=== PATIENT | female | born 1930 | race Caucasian/White ===

== ENCOUNTER → 2017-02-18 | Outpatient (CLI) | payer OTHER ==
[~2017-02-18] MED LIST: 8 HOUR PAIN RE650 MG PO; ALBU3IS INH; ALBU90I INH; ALLO100 PO; AZIT250; AZIT250 PO; AZIT500 PO; Acetaminophen-1 EAC1 PO; BENADRYL25 MG PO; BENZ100A PO; BISA10S PR; CALCIUM 600 +1 EAC4 PO; CEFD300 PO; CENTRUM SILVER1 EAC2 PO; CHOL10002 PO; CIPR500 PO; CLARITIN10 MG PO; CODEINE-GUAIFE120 ML PO; CYAN100 PO; Cardiovid Plus1 EACH PO; Cipro250 MG PO; Cipro500 MG PO; Col-Rite100 MG PO; Constulose10 GM/15 M PO; Coq-10100 MG PO; DELTASONE20 MG PO; DICLOFENAC 1% GEL TOP; DIPH50 PO; DOC250 PO; DOCCAL240 PO; DOCU100 PO; DOXY100 PO; FISH1000 PO; FURO20 PO; Ferus150 MG; GABA100 PO; HYDR1TAB94 PO; HYDURE500 PO; IPRAIS INH; IPRAIS NEB; K-Dur20 MEQ PO; Kristalose20 GM PO; LEVFLO500 PO; LEVO750 PO; LEVSOD50; LINZESS145 MCG PO; LINZESS290 MCG PO; LOSHYD; MAGOXI400 PO; MELATONIN2.5 MG PO; MONT10T PO; Magnesium500 M1 PO; NAC600 MG PO; ONDA4ODT MM; ONDA4ODT SL; ONDA8 PO; OXYB5 PO; PANCREATIN 8X1 GM PO; PHOSPHATIDYL S100 GM PO; POTA8 PO; POTASSIUM PO; POTCHL10ER PO; POTCHL20ER PO; PYRI100 PO; Potassium Chlo10 ME1; SENN187 PO; SERT50 PO; Singulair10 MG PO; Sprycel100 MG PO; Sprycel20 MG PO; TEMA15 PO; TOCO1000 PO; UBID100 PO; VITAMIN D31 ML; VITAMIN D32400 UNIT/ PO; WARF1 PO; WARF5 PO; WARF6; WARF6 PO; WARF7.5; WARF7.5 PO; Zithromax250 MG PO; Zofran Odt4 MG PO; Zofran4 MG PO; Zofran8 MG PO; [UNRECOGNIZED DRUG - OTHER]; [UNRECOGNIZED DRUG - OTHER] PO
== END ==
LOC: LAB SHORT 15:52 → OLS 15:52 → LAB SHORT 02-19 15:52
DX: R19.7 Diarrhea, unspecified (principal)
CPT/HCPCS: 87493

== ENCOUNTER → 2017-02-21 | Outpatient (CLI) | payer OTHER | END | disposition home or self-care (01) | LOC: LAB SHORT 17:08 → OLS 17:08 | DX: J18.9 Pneumonia, unspecified organism (principal) | CPT/HCPCS: 87070; 87205 ==

== ENCOUNTER → 2017-02-21 | Outpatient (CLI) | payer OTHER ==
[2017-02-21 18:40] LABS: Influenza A Negative (NEGATIVE); Influenza B Negative (NEGATIVE)
== END | disposition home or self-care (01) ==
LOC: LAB 17:25 → LAB SHORT 17:25
PROVIDERS: Internal Medicine
DX: J18.9 Pneumonia, unspecified organism (principal); R50.9 Fever, unspecified; R05 Cough
CPT/HCPCS: 87804

== ENCOUNTER 2017-02-22 14:24 | Emergency (ER) | payer OTHER ==
[~2017-02-22] VITALS: Ht 175.3 cm; Wt 70.3 kg
[~2017-02-22 14:24] MED LIST changes: -AZIT250; -AZIT500 PO; -Acetaminophen-1 EAC1 PO; -CEFD300 PO; -CIPR500 PO; -Cipro250 MG PO; -Constulose10 GM/15 M PO; -FURO20 PO; -Ferus150 MG; -LEVFLO500 PO; -LINZESS145 MCG PO; -LINZESS290 MCG PO; -ONDA4ODT SL; -ONDA8 PO; -POTA8 PO; -SERT50 PO; -Sprycel20 MG PO; -TEMA15 PO; -Zithromax250 MG PO; -Zofran Odt4 MG PO; -Zofran4 MG PO; -Zofran8 MG PO
[2017-02-22 15:06] LABS: BASOPHILS ABSOLUTE AUTO 0.01 K/mm3 (0.00-0.23); BASOPHILS PERCENT AUTO 0 % (0-2); EOSINOPHILS ABSOLUTE AUTO 0.01 K/mm3 (0.00-0.68); EOSINOPHILS PERCENT AUTO 0 % (0-6); Hematocrit 31.1 % (33.0-51.0); Hemoglobin 10.1 g/dL (11.5-16.0); IMMATURE GRAN ABSOLUTE AUTO 0.01 K/mm3 (0.00-0.10); IMMATURE GRAN PERCENT AUTO 0 % (0-1); LYMPHOCYTES ABSOLUTE AUTO 3.41 K/mm3 (0.84-5.20); LYMPHOCYTES PERCENT AUTO 53 % (21-46); MONOCYTES ABSOLUTE AUTO 0.51 K/mm3 (0.16-1.47); MONOCYTES PERCENT AUTO 8 % (4-13); Mean Corpuscular HGB 30.1 pg (26.0-34.0); Mean Corpuscular HGB Conc 32.5 g/dL (31.5-36.5); Mean Corpuscular Volume 93 fL (80-100); Mean Platelet Volume 9.4 fL (9.1-12.4); NEUTROPHILS ABSOLUTE AUTO 2.48 K/mm3 (1.96-9.15); NEUTROPHILS PERCENT AUTO 39 % (41-73); Platelet Count 119 K/mm3 (150-400); RDW Coefficient Variation 17.2 % (11.7-14.2); RDW Standard Deviation 58.4 fL (35.1-46.3); Red Blood Cell Count 3.36 M/mm3 (3.80-5.20); White Blood Cell Count 6.43 K/mm3 (4.00-11.30)
[2017-02-22] MEDS ORDERED: DIPH50 PO (15:20)
[2017-02-22] MEDS ORDERED: LINZESS145 MCG PO (15:21)
[2017-02-22] MEDS ORDERED: Ferus150 MG ×2 (15:22→15:25)
[2017-02-22 15:23] LABS: Alanine Aminotransfer (ALT/SGP 32 U/L (12-78); Albumin, Blood 2.6 g/dL (3.4-5.0); Albumin/Globulin Ratio 0.6 (0.8-1.8); Alk Phos 64 U/L (50-136); Anion Gap 5 mmol/L (6-16); Aspartate Aminotrans (AST/SGOT 26 U/L (12-37); Bilirubin, Total 0.2 mg/dL (0.1-1.0); Blood Urea Nitrogen 17 mg/dL (8-24); Bun/Creatinine Ratio 28.1 (12.0-20.0); CO2, Blood 29 mmol/L (21-32); Calcium, Blood 8.2 mg/dL (8.5-10.1); Chloride, Blood 105 mmol/L (98-108); Creatinine, Blood 0.61 mg/dL (0.40-1.00); Globulin, Blood 4.1 g/dL (2.2-4.0); Glomerular Filtration Rate >60 (60-); Glucose, Blood 93 mg/dL (70-99); Potassium, Blood 3.6 mmol/L (3.5-5.5); Sodium, Blood 139 mmol/L (136-145); Total Protein, Blood 6.7 g/dL (6.4-8.2)
[2017-02-22] MEDS ORDERED: CEFD300 PO (15:23)
[2017-02-22] MEDS ORDERED: AZIT500 PO (15:23)
[2017-06-13] MEDS ORDERED: Zithromax250 MG PO (13:22)
[2017-06-13] MEDS ORDERED: TEMA15 PO (13:24)
[2017-06-13] MEDS ORDERED: POTA8 PO (13:24)
[2017-06-13] MEDS ORDERED: Acetaminophen-1 EAC1 PO (13:24)
[2017-06-13] MEDS ORDERED: SERT50 PO (13:24)
[2017-06-13] MEDS ORDERED: LINZESS290 MCG PO (13:24)
[2017-06-13] MEDS ORDERED: ONDA8 PO (13:24)
[2017-06-13] MEDS ORDERED: Constulose10 GM/15 M PO (13:24)
[2017-06-13] MEDS ORDERED: FURO20 PO (13:25)
[2017-06-23] MEDS ORDERED: LEVFLO500 PO (00:27)
[2017-06-23] MEDS ORDERED: Zofran Odt4 MG PO (00:27)
[2017-06-26] MEDS ORDERED: Zithromax250 MG PO (07:21)
[2017-10-17] MEDS ORDERED: Cipro250 MG PO (13:34)
== END 2017-02-22 17:44 | disposition home or self-care (01) ==
LOC: ER 14:24
PROVIDERS: Psychiatry & Neurology Psychiatry
DX: M26.621 Arthralgia of right temporomandibular joint (principal); J90 Pleural effusion, not elsewhere classified; Z88.1 Allergy status to other antibiotic agents; Z88.5 Allergy status to narcotic agent; Z88.8 Allergy status to other drugs, medicaments and biological substances; Z79.899 Other long term (current) drug therapy; I48.91 Unspecified atrial fibrillation; Z90.89 Acquired absence of other organs; Z90.710 Acquired absence of both cervix and uterus; Z90.49 Acquired absence of other specified parts of digestive tract
CPT/HCPCS: 36415; 70491; 80053; 85025; 96360; 96361; 99284; J7030; Q9967

== ENCOUNTER 2017-03-10 11:29 | Day surgery (SDC) | payer OTHER ==
[~2017-03-10 11:29] MED LIST changes: +AZIT500 PO; +CEFD300 PO; +Ferus150 MG; +LINZESS145 MCG PO
[2017-03-10 12:12] LABS: International Normalized Ratio 1.1; Prothrombin Time Results 11.5 Sec (9.7-11.5)
[2017-06-13] MEDS ORDERED: Zithromax250 MG PO (13:22)
[2017-06-13] MEDS ORDERED: TEMA15 PO (13:24)
[2017-06-13] MEDS ORDERED: ONDA8 PO (13:24)
[2017-06-13] MEDS ORDERED: POTA8 PO (13:24)
[2017-06-13] MEDS ORDERED: SERT50 PO (13:24)
[2017-06-13] MEDS ORDERED: LINZESS290 MCG PO (13:24)
[2017-06-13] MEDS ORDERED: Acetaminophen-1 EAC1 PO (13:24)
[2017-06-13] MEDS ORDERED: Constulose10 GM/15 M PO (13:24)
[2017-06-13] MEDS ORDERED: FURO20 PO (13:25)
[2017-06-23] MEDS ORDERED: LEVFLO500 PO (00:27)
[2017-06-23] MEDS ORDERED: Zofran Odt4 MG PO (00:27)
[2017-06-26] MEDS ORDERED: Zithromax250 MG PO (07:21)
[2017-10-17] MEDS ORDERED: Cipro250 MG PO (13:34)
== END 2017-03-10 22:51 | disposition home or self-care (01) ==
LOC: LAB 11:29 → US 11:29
PROVIDERS: Internal Medicine
PROC: 0W993ZX Drainage of Right Pleural Cavity, Percutaneous Approach, Diagnostic (ICD-10-PCS; principal; 2017-03-10)
DX: J90 Pleural effusion, not elsewhere classified (principal)
CPT/HCPCS: 32555; 36415; 71045; 85610; 85730; 88108; 88305

== ENCOUNTER → 2017-03-21 | Outpatient (CLI) | payer OTHER ==
[~2017-03-21] MED LIST changes: +AZIT250; +Acetaminophen-1 EAC1 PO; +CIPR500 PO; +Cipro250 MG PO; +Constulose10 GM/15 M PO; +FURO20 PO; +LEVFLO500 PO; +LINZESS290 MCG PO; +ONDA4ODT SL; +ONDA8 PO; +POTA8 PO; +SERT50 PO; +Sprycel20 MG PO; +TEMA15 PO; +Zithromax250 MG PO; +Zofran Odt4 MG PO; +Zofran4 MG PO; +Zofran8 MG PO
== END ==
LOC: LAB EV 18:19 → LAB SHORT 18:19
DX: N75.0 Cyst of Bartholin's gland (principal)
CPT/HCPCS: 87070; 87075; 87205

== ENCOUNTER 2017-03-26 18:18 | Emergency (ER) | payer OTHER ==
[~2017-03-26] VITALS: Ht 175.3 cm; Wt 70.3 kg
[~2017-03-26 18:18] MED LIST changes: -AZIT250; -Acetaminophen-1 EAC1 PO; -CIPR500 PO; -Cipro250 MG PO; -Constulose10 GM/15 M PO; -FURO20 PO; -LEVFLO500 PO; -LINZESS290 MCG PO; -ONDA4ODT SL; -ONDA8 PO; -POTA8 PO; -SERT50 PO; -Sprycel20 MG PO; -TEMA15 PO; -Zithromax250 MG PO; -Zofran Odt4 MG PO; -Zofran4 MG PO; -Zofran8 MG PO
[2017-03-26 19:15] LABS: BASOPHILS ABSOLUTE AUTO 0.01 K/mm3 (0.00-0.23); BASOPHILS PERCENT AUTO 0 % (0-2); EOSINOPHILS PERCENT AUTO 0 % (0-6); Hematocrit 36.5 % (33.0-51.0); Hemoglobin 11.6 g/dL (11.5-16.0); IMMATURE GRAN ABSOLUTE AUTO 0.01 K/mm3 (0.00-0.10); IMMATURE GRAN PERCENT AUTO 0 % (0-1); LYMPHOCYTES ABSOLUTE AUTO 1.56 K/mm3 (0.84-5.20); LYMPHOCYTES PERCENT AUTO 32 % (21-46); MONOCYTES ABSOLUTE AUTO 0.28 K/mm3 (0.16-1.47); MONOCYTES PERCENT AUTO 6 % (4-13); Mean Corpuscular HGB 29.5 pg (26.0-34.0); Mean Corpuscular HGB Conc 31.8 g/dL (31.5-36.5); Mean Corpuscular Volume 93 fL (80-100); Mean Platelet Volume 9.3 fL (9.1-12.4); NEUTROPHILS ABSOLUTE AUTO 2.98 K/mm3 (1.96-9.15); NEUTROPHILS PERCENT AUTO 62 % (41-73); Platelet Count 163 K/mm3 (150-400); RDW Coefficient Variation 15.5 % (11.7-14.2); RDW Standard Deviation 53.1 fL (35.1-46.3); Red Blood Cell Count 3.93 M/mm3 (3.80-5.20); White Blood Cell Count 4.84 K/mm3 (4.00-11.30)
[2017-03-26 19:34] LABS: Alanine Aminotransfer (ALT/SGP 30 U/L (12-78); Albumin/Globulin Ratio 0.7 (0.8-1.8); Alk Phos 95 U/L (50-136); Anion Gap 6 mmol/L (6-16); Aspartate Aminotrans (AST/SGOT 35 U/L (12-37); Bilirubin, Total 0.4 mg/dL (0.1-1.0); Blood Urea Nitrogen 17 mg/dL (8-24); Bun/Creatinine Ratio 23.5 (12.0-20.0); CO2, Blood 30 mmol/L (21-32); Calcium, Blood 9.1 mg/dL (8.5-10.1); Chloride, Blood 102 mmol/L (98-108); Creatinine, Blood 0.72 mg/dL (0.40-1.00); Globulin, Blood 4.6 g/dL (2.2-4.0); Glomerular Filtration Rate >60 (60-); Glucose, Blood 118 mg/dL (70-99); Potassium, Blood 3.5 mmol/L (3.5-5.5); Sodium, Blood 138 mmol/L (136-145); Total Protein, Blood 7.6 g/dL (6.4-8.2)
[2017-03-26] MEDS ORDERED: POTCHL20ER PO (20:41)
[2017-03-26] MEDS ORDERED: Sprycel20 MG PO (20:41)
[2017-03-26] MEDS ORDERED: Zofran8 MG PO (22:58)
[2017-03-27] MEDS ORDERED: ONDA4ODT SL (09:35)
[2017-03-27] MEDS ORDERED: CIPR500 PO (14:12)
[2017-06-13] MEDS ORDERED: Zithromax250 MG PO (13:22)
[2017-06-13] MEDS ORDERED: LINZESS290 MCG PO (13:24)
[2017-06-13] MEDS ORDERED: SERT50 PO (13:24)
[2017-06-13] MEDS ORDERED: POTA8 PO (13:24)
[2017-06-13] MEDS ORDERED: Acetaminophen-1 EAC1 PO (13:24)
[2017-06-13] MEDS ORDERED: TEMA15 PO (13:24)
[2017-06-13] MEDS ORDERED: Constulose10 GM/15 M PO (13:24)
[2017-06-13] MEDS ORDERED: ONDA8 PO (13:24)
[2017-06-13] MEDS ORDERED: FURO20 PO (13:25)
[2017-06-23] MEDS ORDERED: LEVFLO500 PO (00:27)
[2017-06-23] MEDS ORDERED: Zofran Odt4 MG PO (00:27)
[2017-06-26] MEDS ORDERED: Zithromax250 MG PO (07:21)
[2017-10-17] MEDS ORDERED: Cipro250 MG PO (13:34)
== END 2017-03-26 23:18 | disposition home or self-care (01) ==
LOC: ER 18:18
PROVIDERS: Emergency Medicine
DX: R11.2 Nausea with vomiting, unspecified (principal); Z88.8 Allergy status to other drugs, medicaments and biological substances; Z88.5 Allergy status to narcotic agent; Z88.1 Allergy status to other antibiotic agents; Z79.899 Other long term (current) drug therapy; Z79.2 Long term (current) use of antibiotics
CPT/HCPCS: 36415; 80053; 83690; 85025; 93005; 93010; 96361; 96374; 96376; 99285; J2405; J7030

== ENCOUNTER 2017-03-26 23:36 | Observation (INO) | payer OTHER ==
[~2017-03-26] VITALS: Ht 175.3 cm; Wt 68.6 kg
[~2017-03-26 23:36] MED LIST changes: +Sprycel20 MG PO; +Zofran8 MG PO
[2017-03-27 01:45] LABS: Source, Urine Catheter
[2017-03-27 01:48] LABS: Bilirubin, Urine Neg (Neg); Blood, Urine Neg (Neg); Glucose Qualitative, Urine Neg (Neg); Ketones, Urine Neg (Neg); Leukocyte Esterase, Urine 1+ (Neg); Nitrite, Urine Neg (Neg); Protein, Urine 2+ (Neg); Urobilinogen, Urine 1+ (Normal)
[2017-03-27 01:52] LABS: Appearance, Urine Clear (Clear); Color, Urine Yellow (P-Yellow)
[2017-03-27 01:56] LABS: Bacteria Few /hpf; Red Blood Cells, Urine Not Seen /hpf (0-2); Squamous Epithelial Cells Few /hpf (Few)
[2017-03-27] MEDS ORDERED: ONDA4ODT SL (09:35)
[2017-03-27] MEDS ORDERED: CIPR500 PO (14:12)
[2017-06-13] MEDS ORDERED: Zithromax250 MG PO (13:22)
[2017-06-13] MEDS ORDERED: TEMA15 PO (13:24)
[2017-06-13] MEDS ORDERED: LINZESS290 MCG PO (13:24)
[2017-06-13] MEDS ORDERED: SERT50 PO (13:24)
[2017-06-13] MEDS ORDERED: Acetaminophen-1 EAC1 PO (13:24)
[2017-06-13] MEDS ORDERED: ONDA8 PO (13:24)
[2017-06-13] MEDS ORDERED: POTA8 PO (13:24)
[2017-06-13] MEDS ORDERED: Constulose10 GM/15 M PO (13:24)
[2017-06-13] MEDS ORDERED: FURO20 PO (13:25)
[2017-06-23] MEDS ORDERED: Zofran Odt4 MG PO (00:27)
[2017-06-23] MEDS ORDERED: LEVFLO500 PO (00:27)
[2017-06-26] MEDS ORDERED: Zithromax250 MG PO (07:21)
[2017-10-17] MEDS ORDERED: Cipro250 MG PO (13:34)
== END 2017-03-27 16:03 | disposition home or self-care (01) ==
LOC: ER 23:36 → MEDS 23:37 → ENPENDDIS 03-27 09:00 → MEDS 03-27 16:03
PROVIDERS: Emergency Medicine
DX: R11.2 Nausea with vomiting, unspecified (principal); N39.0 Urinary tract infection, site not specified; I48.91 Unspecified atrial fibrillation; Z90.710 Acquired absence of both cervix and uterus; Z90.49 Acquired absence of other specified parts of digestive tract; Z90.89 Acquired absence of other organs; Z85.6 Personal history of leukemia; Z88.1 Allergy status to other antibiotic agents; Z88.5 Allergy status to narcotic agent; Z88.8 Allergy status to other drugs, medicaments and biological substances; Z79.899 Other long term (current) drug therapy; Z98.42 Cataract extraction status, left eye; Z96.1 Presence of intraocular lens; Z98.890 Other specified postprocedural states
CPT/HCPCS: 36415; 74176; 81001; 84484; 87086; 96361; 96374; 96375; 96376; 99285; G0378; J2405; J2550; J7030; P9612

== ENCOUNTER 2017-05-22 14:04 | Day surgery (SDC) | payer OTHER ==
[~2017-05-22 14:04] MED LIST changes: +CIPR500 PO; +ONDA4ODT SL
[2017-05-22 15:51] LABS: Automated BF WBC Count 1.217 K/mm3 (0-999); Body Fluid WBC Count 1217 /mm3 (0-999)
[2017-05-22 16:10] LABS: Performing Lab SYMBIODX; Test Name FLOW
[2017-05-22 16:24] LABS: RBC Count, Body Fluid 520 /mm3 (0-0)
[2017-05-22 16:48] LABS: Glucose, Body Fluid 117 mg/dL; Lactate Dehydrogenase, Body Fl 96 U/L; Protein, Body Fluid 3.9 g/dL
[2017-05-22 16:58] LABS: Color, Body Fluid L Yellow (None-Yellow)
[2017-05-22 16:59] LABS: Appearance, Body Fluid Hazy (Clear)
[2017-05-22 17:19] LABS: Total Cell Count, Body Fluid 100
== END 2017-05-22 22:44 | disposition home or self-care (01) ==
LOC: US 14:04
PROVIDERS: Internal Medicine Critical Care Medicine
PROC: 0W993ZZ Drainage of Right Pleural Cavity, Percutaneous Approach (ICD-10-PCS; principal; 2017-05-22)
DX: J90 Pleural effusion, not elsewhere classified (principal)
CPT/HCPCS: 32555; 71045; 82042; 82945; 83615; 84157; 89051

== ENCOUNTER 2017-06-19 11:39 | Emergency (ER) | payer OTHER ==
[~2017-06-19] VITALS: Ht 172.7 cm; Wt 151.0 kg
[~2017-06-19 11:39] MED LIST changes: +Acetaminophen-1 EAC1 PO; +Constulose10 GM/15 M PO; +FURO20 PO; +LINZESS290 MCG PO; +ONDA8 PO; +POTA8 PO; +SERT50 PO; +TEMA15 PO; +Zithromax250 MG PO
[2017-06-19 12:20] LABS: BASOPHILS ABSOLUTE AUTO 0.01 K/mm3 (0.00-0.23); BASOPHILS PERCENT AUTO 0 % (0-2); EOSINOPHILS ABSOLUTE AUTO 0.02 K/mm3 (0.00-0.68); EOSINOPHILS PERCENT AUTO 1 % (0-6); Hematocrit 36.8 % (33.0-51.0); Hemoglobin 11.5 g/dL (11.5-16.0); IMMATURE GRAN PERCENT AUTO 0 % (0-1); LYMPHOCYTES PERCENT AUTO 42 % (21-46); MONOCYTES ABSOLUTE AUTO 0.36 K/mm3 (0.16-1.47); MONOCYTES PERCENT AUTO 9 % (4-13); Mean Corpuscular HGB 28.5 pg (26.0-34.0); Mean Corpuscular HGB Conc 31.3 g/dL (31.5-36.5); Mean Corpuscular Volume 91 fL (80-100); Mean Platelet Volume 10.1 fL (9.1-12.4); NEUTROPHILS ABSOLUTE AUTO 1.85 K/mm3 (1.96-9.15); NEUTROPHILS PERCENT AUTO 48 % (41-73); Platelet Count 147 K/mm3 (150-400); RDW Coefficient Variation 17.2 % (11.7-14.2); RDW Standard Deviation 57.6 fL (35.1-46.3); Red Blood Cell Count 4.03 M/mm3 (3.80-5.20); White Blood Cell Count 3.84 K/mm3 (4.00-11.30)
[2017-06-19] MEDS ORDERED: AZIT250 (12:35)
[2017-06-19 12:37] LABS: Alanine Aminotransfer (ALT/SGP 25 U/L (12-78); Albumin, Blood 2.6 g/dL (3.4-5.0); Albumin/Globulin Ratio 0.6 (0.8-1.8); Alk Phos 67 U/L (50-136); Anion Gap 5 mmol/L (6-16); Aspartate Aminotrans (AST/SGOT 29 U/L (12-37); Bilirubin, Total 0.3 mg/dL (0.1-1.0); Blood Urea Nitrogen 20 mg/dL (8-24); Bun/Creatinine Ratio 27.8 (12.0-20.0); CO2, Blood 29 mmol/L (21-32); Calcium, Blood 8.5 mg/dL (8.5-10.1); Chloride, Blood 103 mmol/L (98-108); Creatinine, Blood 0.72 mg/dL (0.40-1.00); Globulin, Blood 4.4 g/dL (2.2-4.0); Glomerular Filtration Rate >60 (60-); Glucose, Blood 131 mg/dL (70-99); Sodium, Blood 137 mmol/L (136-145); Troponin I <0.015 ng/mL (0.000-0.040)
[2017-06-23] MEDS ORDERED: Zofran Odt4 MG PO (00:27)
[2017-06-23] MEDS ORDERED: LEVFLO500 PO (00:27)
== END 2017-06-19 15:23 | disposition home or self-care (01) ==
LOC: ER 11:39
PROVIDERS: Emergency Medicine
DX: R06.02 Shortness of breath (principal); Z88.1 Allergy status to other antibiotic agents; Z88.5 Allergy status to narcotic agent; Z88.8 Allergy status to other drugs, medicaments and biological substances; Z79.899 Other long term (current) drug therapy
CPT/HCPCS: 36415; 71046; 80053; 83880; 84484; 85025; 93005; 93010

== ENCOUNTER → 2017-06-28 | Outpatient (CLI) | payer OTHER ==
[~2017-06-28] MED LIST changes: +AZIT250; +LEVFLO500 PO; +Zofran Odt4 MG PO
[2017-06-28 14:07] LABS: BASOPHILS ABSOLUTE AUTO 0.01 K/mm3 (0.00-0.23); BASOPHILS PERCENT AUTO 0 % (0-2); EOSINOPHILS ABSOLUTE AUTO 0.01 K/mm3 (0.00-0.68); EOSINOPHILS PERCENT AUTO 0 % (0-6); Hematocrit 35.7 % (33.0-51.0); Hemoglobin 11.6 g/dL (11.5-16.0); IMMATURE GRAN ABSOLUTE AUTO 0.01 K/mm3 (0.00-0.10); IMMATURE GRAN PERCENT AUTO 0 % (0-1); LYMPHOCYTES ABSOLUTE AUTO 1.05 K/mm3 (0.84-5.20); LYMPHOCYTES PERCENT AUTO 35 % (21-46); MONOCYTES ABSOLUTE AUTO 0.39 K/mm3 (0.16-1.47); MONOCYTES PERCENT AUTO 13 % (4-13); Mean Corpuscular HGB 29.2 pg (26.0-34.0); Mean Corpuscular HGB Conc 32.5 g/dL (31.5-36.5); Mean Corpuscular Volume 90 fL (80-100); Mean Platelet Volume 9.3 fL (9.1-12.4); NEUTROPHILS ABSOLUTE AUTO 1.55 K/mm3 (1.96-9.15); NEUTROPHILS PERCENT AUTO 51 % (41-73); Platelet Count 141 K/mm3 (150-400); RDW Coefficient Variation 17.9 % (11.7-14.2); RDW Standard Deviation 58.9 fL (35.1-46.3); Red Blood Cell Count 3.97 M/mm3 (3.80-5.20); White Blood Cell Count 3.02 K/mm3 (4.00-11.30)
[2017-06-28 14:20] LABS: Albumin, Blood 2.7 g/dL (3.4-5.0); Albumin/Globulin Ratio 0.6 (0.8-1.8); Bilirubin, Total 0.3 mg/dL (0.1-1.0); Bun/Creatinine Ratio 20.7 (12.0-20.0); Calcium, Blood 8.7 mg/dL (8.5-10.1); Creatinine, Blood 0.92 mg/dL (0.40-1.00); Globulin, Blood 4.5 g/dL (2.2-4.0); Potassium, Blood 3.9 mmol/L (3.5-5.5); Total Protein, Blood 7.2 g/dL (6.4-8.2)
== END | disposition home or self-care (01) ==
LOC: LAB EV 14:01 → LAB SHORT 14:01
PROVIDERS: Physician Assistant
DX: R06.00 Dyspnea, unspecified (principal)
CPT/HCPCS: 80053; 83880; 85025

== ENCOUNTER → 2017-07-30 | Outpatient (CLI) | payer OTHER ==
[2017-07-30 13:37] LABS: Bilirubin, Urine Neg (Neg); Blood, Urine Neg (Neg); Glucose Qualitative, Urine Neg (Neg); Ketones, Urine Neg (Neg); Leukocyte Esterase, Urine Neg (Neg); Nitrite, Urine Neg (Neg); Protein, Urine Neg (Neg); Urobilinogen, Urine 1+ (Normal)
[2017-07-30 14:04] LABS: Appearance, Urine Clear (Clear); Color, Urine Yellow (P-Yellow)
== END | disposition home or self-care (01) ==
LOC: LAB HH 13:26
PROVIDERS: Internal Medicine
DX: N39.0 Urinary tract infection, site not specified (principal)
CPT/HCPCS: 81003

== ENCOUNTER 2017-11-13 17:41 | Emergency (ER) | payer OTHER ==
[~2017-11-13] VITALS: Ht 170.2 cm; Wt 64.9 kg
[~2017-11-13 17:41] MED LIST changes: +Cipro250 MG PO
[2017-11-13 18:18] LABS: BASOPHILS ABSOLUTE AUTO 0.01 K/mm3 (0.00-0.23); BASOPHILS PERCENT AUTO 0 % (0-2); EOSINOPHILS ABSOLUTE AUTO 0.01 K/mm3 (0.00-0.68); EOSINOPHILS PERCENT AUTO 0 % (0-6); Hematocrit 37.9 % (33.0-51.0); Hemoglobin 11.8 g/dL (11.5-16.0); IMMATURE GRAN PERCENT AUTO 0 % (0-1); LYMPHOCYTES ABSOLUTE AUTO 1.61 K/mm3 (0.84-5.20); LYMPHOCYTES PERCENT AUTO 38 % (21-46); MONOCYTES PERCENT AUTO 10 % (4-13); Mean Corpuscular HGB Conc 31.1 g/dL (31.5-36.5); Mean Corpuscular Volume 90 fL (80-100); Mean Platelet Volume 10.3 fL (9.1-12.4); NEUTROPHILS ABSOLUTE AUTO 2.17 K/mm3 (1.96-9.15); NEUTROPHILS PERCENT AUTO 52 % (41-73); Platelet Count 153 K/mm3 (150-400); RDW Coefficient Variation 16.9 % (11.7-14.2); RDW Standard Deviation 56.2 fL (35.1-46.3); Red Blood Cell Count 4.21 M/mm3 (3.80-5.20)
[2017-11-13 18:37] LABS: Alanine Aminotransfer (ALT/SGP 31 U/L (12-78); Albumin, Blood 2.8 g/dL (3.4-5.0); Albumin/Globulin Ratio 0.6 (0.8-1.8); Alk Phos 76 U/L (50-136); Anion Gap 7 mmol/L (6-16); Aspartate Aminotrans (AST/SGOT 28 U/L (12-37); Bilirubin, Total 0.3 mg/dL (0.1-1.0); Blood Urea Nitrogen 15 mg/dL (8-24); Bun/Creatinine Ratio 23.1 (12.0-20.0); CO2, Blood 29 mmol/L (21-32); Calcium, Blood 8.8 mg/dL (8.5-10.1); Chloride, Blood 100 mmol/L (98-108); Creatinine, Blood 0.65 mg/dL (0.40-1.00); Globulin, Blood 4.9 g/dL (2.2-4.0); Glomerular Filtration Rate >60 (60-); Glucose, Blood 107 mg/dL (70-99); Potassium, Blood 4.1 mmol/L (3.5-5.5); Sodium, Blood 136 mmol/L (136-145); Total Protein, Blood 7.7 g/dL (6.4-8.2)
[2017-11-13 23:53] LABS: Source, Urine Clean Catch
[2017-11-13 23:54] LABS: Bilirubin, Urine Neg (Neg); Blood, Urine 2+ (Neg); Glucose Qualitative, Urine Neg (Neg); Ketones, Urine 1+ (Neg); Leukocyte Esterase, Urine 3+ (Neg); Nitrite, Urine Neg (Neg); Protein, Urine 3+ (Neg); Urobilinogen, Urine 2+ (Normal)
[2017-11-14 00:02] LABS: Appearance, Urine Cloudy (Clear); Color, Urine Yellow (P-Yellow); White Blood Cells, Urine TNTC /hpf (0-5)
[2017-11-14 00:03] LABS: Amorphous Light (0-Heavy); Bacteria Many /hpf; Squamous Epithelial Cells Few /hpf (Few); Transitional Epithelial Cells Few /hpf (0-Rare)
[2017-11-14] MEDS ORDERED: Zofran4 MG PO (00:40)
== END 2017-11-14 00:58 | disposition home or self-care (01) ==
LOC: ER 17:41
PROVIDERS: Emergency Medicine
DX: A08.4 Viral intestinal infection, unspecified (principal); E86.0 Dehydration; I48.91 Unspecified atrial fibrillation; Z88.1 Allergy status to other antibiotic agents; Z88.5 Allergy status to narcotic agent; Z88.8 Allergy status to other drugs, medicaments and biological substances; Z79.899 Other long term (current) drug therapy
CPT/HCPCS: 36415; 80053; 81001; 83690; 84484; 85025; 87086; 93005; 93010; 96361; 96374; 99283-25; J2405; J7120

== ENCOUNTER → 2018-01-26 | Outpatient (CLI) | payer OTHER ==
[~2018-01-26] MED LIST changes: +Zofran4 MG PO
[2018-01-26 18:25] LABS: Percent Saturation 12.5 % (15.0-50.0)
== END | disposition home or self-care (01) ==
LOC: LAB SHORT 17:57 → LAB 17:57
PROVIDERS: Internal Medicine Hematology & Oncology
DX: D50.9 Iron deficiency anemia, unspecified (principal)
CPT/HCPCS: 82728; 83540; 83550

== ENCOUNTER 2019-06-13 19:52 | Observation (INO) | payer OTHER ==
[~2019-06-13] VITALS: Ht 170.2 cm; Wt 77.6 kg
[2019-06-13 20:45] LABS: BASOPHILS ABSOLUTE AUTO 0.16 K/mm3 (0.00-0.23); BASOPHILS PERCENT AUTO 2 % (0-2); EOSINOPHILS ABSOLUTE AUTO 0.01 K/mm3 (0.00-0.68); EOSINOPHILS PERCENT AUTO 0 % (0-6); Hematocrit 38.4 % (33.0-51.0); Hemoglobin 12.1 g/dL (11.5-16.0); IMMATURE GRAN ABSOLUTE AUTO 0.14 K/mm3 (0.00-0.10); IMMATURE GRAN PERCENT AUTO 1 % (0-1); LYMPHOCYTES ABSOLUTE AUTO 1.71 K/mm3 (0.84-5.20); LYMPHOCYTES PERCENT AUTO 17 % (21-46); MONOCYTES ABSOLUTE AUTO 0.85 K/mm3 (0.16-1.47); MONOCYTES PERCENT AUTO 9 % (4-13); Mean Corpuscular HGB 28.6 pg (26.0-34.0); Mean Corpuscular HGB Conc 31.5 g/dL (31.5-36.5); Mean Corpuscular Volume 91 fL (80-100); Mean Platelet Volume 9.3 fL (9.1-12.4); NEUTROPHILS ABSOLUTE AUTO 7.06 K/mm3 (1.96-9.15); NEUTROPHILS PERCENT AUTO 71 % (41-73); Platelet Count 410 K/mm3 (150-400); RDW Coefficient Variation 13.7 % (11.7-14.2); RDW Standard Deviation 46.1 fL (35.1-46.3); Red Blood Cell Count 4.23 M/mm3 (3.80-5.20); White Blood Cell Count 9.93 K/mm3 (4.00-11.30)
[2019-06-13 20:52] LABS: Source, Urine Catheter
[2019-06-13 20:56] LABS: Bilirubin, Urine Neg (Neg); Blood, Urine 2+ (Neg); Glucose Qualitative, Urine Neg (Neg); Ketones, Urine Neg (Neg); Leukocyte Esterase, Urine 3+ (Neg); Nitrite, Urine Pos (Neg); Protein, Urine 2+ (Neg); Specific Gravity, Urine 1.015 (1.003-1.022); Urobilinogen, Urine 2+ (Normal)
[2019-06-13 21:01] LABS: Appearance, Urine Hazy (Clear); Color, Urine Yellow (P-Yellow)
[2019-06-13 21:03] LABS: Red Blood Cells, Urine 0-2 /hpf (0-2); White Blood Cells, Urine TNTC /hpf (0-5)
[2019-06-13 21:05] LABS: Bacteria Many /hpf; Squamous Epithelial Cells Rare /hpf (Few)
[2019-06-13 21:06] LABS: Alanine Aminotransfer (ALT/SGP 9 U/L (12-78); Albumin, Blood 3.1 g/dL (3.4-5.0); Albumin/Globulin Ratio 0.6 (0.8-1.8); Alk Phos 84 U/L (50-136); Anion Gap 5 mmol/L (6-16); Aspartate Aminotrans (AST/SGOT 14 U/L (12-37); Bilirubin, Total 0.6 mg/dL (0.1-1.0); Blood Urea Nitrogen 14 mg/dL (8-24); Bun/Creatinine Ratio 21.4 (12.0-20.0); CO2, Blood 30 mmol/L (21-32); Calcium, Blood 9.1 mg/dL (8.5-10.1); Chloride, Blood 100 mmol/L (98-108); Creatinine, Blood 0.65 mg/dL (0.40-1.00); Globulin, Blood 4.9 g/dL (2.2-4.0); Glomerular Filtration Rate >60 (60-); Glucose, Blood 115 mg/dL (70-99); Magnesium, Blood 1.8 mg/dL (1.6-2.4); Phosphorus, Blood 2.2 mg/dL (2.5-4.9); Potassium, Blood 3.6 mmol/L (3.5-5.5); Sodium, Blood 135 mmol/L (136-145); Troponin I <0.015 ng/mL (0.000-0.040)
[2019-06-13] MEDS ORDERED: CENTRUM SILVER1 EAC2 PO (21:47)
--- NOTE | 2019-06-14 00:06 | NUR ---
PATIENT IS A NEW ADMIT FROM THE ED. THREE PERSON TRANSFER FROM [facility] TO BED. AXOX 3 AND BEDREST FROM [facility]. ON 4L O2 NC AND 5L O2 NC BASELINE. REPORTS BILATERAL HIP PAIN AND LEFT WRIST SWOLLEN. PATIENT NAUSEOUS ON TRANSFER FROM ED TO MEDICAL ROOM. NO IV ZOFRAN IN EMAR AT THIS TIME. WILL ORDER. PATIENT REPORTS PAIN IS TOLERABLE AT THIS TIME. RECEIVED IV DILAUDID IN ED. PATIENT ORIENTED TO ROOM AND CALL LIGHT SYSTEM. REPORTS NO TV AT THIS TIME AND LIGHTS REDUCED. CALL IGHT IN REACH. BED ALARM ACTIVATED.
--- NOTE | 2019-06-14 00:11 | NUR ---
HOSPITALIST ИРИНА ROCHA ORDERED IV ZOFRAN 4 MG Q6 PRN.
--- NOTE | 2019-06-14 00:44 | NUR ---
ORTHOPEDICS CONSULT CALLED IN.
--- NOTE | 2019-06-14 02:35 | NUR ---
BED ALARM EXIT. PATIENT GETTING UP TO USE BSC. ONE HVY ASSIST. BED ALARM RESET. CALL LIGHT IN REACH.
--- NOTE | 2019-06-14 03:43 | NUR ---
SHIFT SUMMARY PATIENT HAD NO ACUTE CHANGES OBSERVED. AXOX 3 AND ONE HVY ASSIST TO BSC. REPORTED TOLERATING BILATERAL HIP AND LEFT WRIST PAIN. ON 4L O2 NC AND 5L O2 NC. HX RHONDA. PIV REMAINS INTACT. ORTHOPEDIC CONSULT CALLED IN. VSS/AFBERILE. NAUSEOUS X ONE AND IV ZOFRAN 4 MG GIVEN PER EMAR AND RESOLVED. BED ALARM EXITS WITH ATTEMPTS TO USE BSC W/O CALLING. CALL LIGHT IN REACH. BED IN LOWEST POSITION. WILL CONTINUE TO MONITOR UNTIL DAY SHIFT NURSE ASSUMES CARE.
--- NOTE | 2019-06-14 08:30 | NUR ---
PT PLEASANT COOP A/O. STATES PAIN HIPS, SHOULDERS, L KNEE AND L WRIST. FROM RECENT FALL. MED PER EMAR. H/R REG, NO MURMER NOTED. NO TELE. LUNGS CLEAR, RESP EASY, UNLABORED. ON 4L O2. BT X4 , LAST BM YEST. VOIDS 1 ASST BSC. PENDING VISIT FROM DR ADLER. NO OTHER CONCERNS AT THIS TIME. BED IN LOW POSITION,C ALL LITE IN REACH, CALLS APPROP
--- NOTE | 2019-06-14 11:40 | NUR ---
PT C/O PAIN. NOT HELPED WITH NORCO, NOT HELPED MUCH WITH FENTANYL . CALLED DR GALLO. DR REYED TORADOL ORDERS PENDING
--- NOTE | 2019-06-14 12:43 | NUR ---
PT RESTING, EYES CLOSED. DID NOT AWAKEN.
--- NOTE | 2019-06-14 17:12 | NUR ---
PT PLEASANT TODAY. NOT SEEN ORTHO TODAY. CALLED [facility]. CLOSED, SPOKE TO ANS SVC. SHE STATE DID GET CONSULT AT 0040 THIS AM. SHOWS CONFIRM TO TEXT TO DR. WILL DOUBLE CHECK DR RECEIVED. DID TRY TORADOL IV THIS AFT. PT THINKS HELPING SOME. WILL CONTINUE TO MONITOR. NO NEW CONCERNS AT THIS TIME. BED IN LOW POSITION, CALL LITE IN REACH, CALLS APPROP. BED ALARM ON FOR SAFETY
--- NOTE | 2019-06-15 06:19 | NUR ---
SUMMARY: A/OX3 BUT SHE'S IMPULSIVE OOB FOR BSC USE AND DOESN'T ALWAYS CALL FOR ASSIST. BED ALARM ON FOR FALL RISK. SHE CONT'S TO BE PAINFUL IN HER HIPS, SHOULDERS AND WRIST R/T FALL AT HOME AND SCATTERED BRUISES OBSERVED. SURGICAL CX STILL PENDING. PT WAS MEDICATED W/TYLENOL AND TORADOL PRN FOR TOLERABLE RELIEF OF PAIN. TREMOR DEVELOPS WHEN PAIN IS WORSENING. SHE ALSO HAS SOME INTERMITTENT NAGGING NAUSEA, ZOFRAN RECIEVED FOR GOOD EFFECT. SHE WAS UP TO BSC T/O NOCTE W/SBA TO VOID, NO INCONTINENCE OBSERVED. PT REMAINS ON 4L O2 AND WEARS HOME O2 PRN, LS CLEAR T/O AND RESPS E/U. IV ABX RECIEVED THEN SL. NO ACUTE CHANGES, VSS/AFEBRILE. WCTM AND REPORT TO DAY RN.
--- NOTE | 2019-06-15 07:41 | NUR ---
I JUST RECEIVED A CALL FROM ORTHOPEDIC Clive HARRINGTON THAT HE AND WILL NOT CONSULT HERE. AFTER REVIEWING HER CHART THEY THINK ALL HER PAIN AND SWELLING IS D/T ARTHRITIS AND WILL SEE HER AN OUTPATIENT FOR MANAGEMENT OF THAT.
[2019-06-15] MEDS ORDERED: CEFU250T47 PO (12:05)
[2019-06-15] MEDS ORDERED: ACET325 PO (12:05)
--- NOTE | 2019-06-15 13:58 | NUR ---
SHE HAS BEEN UP TO THE CHAIR FOR MEALS. HER LW BOTHERS HER THE MOST. IS AWARE THAT THE ORTHOPEDIC DRZeke DOES NOT NEED TO SEE HER AN INPATIENT. SHE WORKED WITH PT AND LATER OT. TORADOL WAS GIVEN FOR ALL HER JOINT PAINS. IT HELPED. SHE DIDN'T USE HER LH ON THE WALKER THIS AM BUT DID THIS SFTERNOON.
--- NOTE | 2019-06-15 15:13 | NUR ---
TRYING TO NAP ON HER LEFT SIDE. MESS ATTENDANT CREW SAYS SHE WILL DISCHARGE THIS AFTERNOON. WAITING TO HEAR A PANTS MAKER TIME.
--- NOTE | 2019-06-15 17:15 | NUR ---
DISCHARGED TO [facility] BY W/Roberto POSADA NOW. SHE JUST HAD HEARTBURN A LITTLE WHILE AGO. I GAVE HER BAKING SODA IN WATER PER HER REQUEST. SHE STARTED TO FEEL BETTER. NO OTHER COMPLAINTS OTHER THAN HER CHRONIC BACK PAIN. SHE WILL REHAB THEN GO HOME. SHE NOTIFIED HER SISTER.
== END 2019-06-15 17:12 ==
LOC: ER 19:52 → MEDS 19:53
PROVIDERS: Emergency Medicine; ADMIT Family Medicine
DX: M16.0 Bilateral primary osteoarthritis of hip (principal); M25.562 Pain in left knee; N39.0 Urinary tract infection, site not specified; I48.0 Paroxysmal atrial fibrillation; Z79.01 Long term (current) use of anticoagulants; Z91.81 History of falling; Z88.0 Allergy status to penicillin; Z88.5 Allergy status to narcotic agent; Z88.8 Allergy status to other drugs, medicaments and biological substances
CPT/HCPCS: 36415; 71045; 73110; 73522; 73560-LT; 80053; 81001; 83735; 84100; 84484; 85025; 87077; 87086; 87186; 93005; 93010; 96365; 96366; 96372; 96374; 96375; 96376; 97112; 97162; 97166; 97530; 97535; 99285-25; A9270; A9270-GY; G0378; J0696; J1170; J1650; J1885; J2405; J3010

== ENCOUNTER 2019-09-22 12:42 | Inpatient (IN) | payer OTHER ==
[~2019-09-22] VITALS: Ht 170.2 cm; Wt 74.0 kg
[~2019-09-22 12:42] MED LIST changes: +ACET325 PO; +ASPI81CH PO; +CEFP200 PO; +CEFU250T47 PO; +Hydroxyurea500 MG PO; +MULTI VITAMIN1 EACH PO
[2019-09-22 13:44] LABS: Hematocrit 36.2 % (33.0-51.0); Hemoglobin 11.1 g/dL (11.5-16.0); Mean Corpuscular HGB 26.9 pg (26.0-34.0); Mean Corpuscular HGB Conc 30.7 g/dL (31.5-36.5); Mean Corpuscular Volume 88 fL (80-100); Mean Platelet Volume 9.1 fL (9.1-12.4); NRBC Auto 0.2 /100 WBC (0.0-0.2); RDW Coefficient Variation 17.2 % (11.7-14.2); Red Blood Cell Count 4.12 M/mm3 (3.80-5.20)
[2019-09-22 13:49] LABS: Alanine Aminotransfer (ALT/SGP 16 U/L (12-78); Albumin/Globulin Ratio 0.6 (0.8-1.8); Alk Phos 67 U/L (50-136); Anion Gap 7 mmol/L (6-16); Aspartate Aminotrans (AST/SGOT 41 U/L (12-37); Bilirubin, Total 0.4 mg/dL (0.1-1.0); Blood Urea Nitrogen 20 mg/dL (8-24); Bun/Creatinine Ratio 28.7 (12.0-20.0); CO2, Blood 22 mmol/L (21-32); Calcium, Blood 9.5 mg/dL (8.5-10.1); Chloride, Blood 104 mmol/L (98-108); Globulin, Blood 4.8 g/dL (2.2-4.0); Glomerular Filtration Rate >60 (60-); Glucose, Blood 115 mg/dL (70-99); Potassium, Blood 5.4 mmol/L (3.5-5.5); Sodium, Blood 133 mmol/L (136-145); Total Protein, Blood 7.8 g/dL (6.4-8.2)
[2019-09-22 13:52] LABS: Platelet Count 3402 K/mm3 (150-400); White Blood Cell Count 51.61 K/mm3 (4.00-11.30)
[2019-09-22 14:10] LABS: BAND PERCENT MAN 1 % (0-8); BASOPHILS ABSOLUTE MAN 1.54 K/mm3 (0.00-0.23); BASOPHILS PERCENT MAN 3 % (0-2); EOSINOPHILS ABSOLUTE MAN 2.58 K/mm3 (0.00-0.68); EOSINOPHILS PERCENT MAN 5 % (0-6); LYMPHOCYTES ABSOLUTE MAN 2.06 K/mm3 (0.84-5.20); LYMPHOCYTES PERCENT MAN 4 % (21-46); METAMYELOCYTE ABSOLUTE MAN 2.58 K/mm3 (0.00-0.00); METAMYELOCYTE PERCENT MAN 5 % (0-0); MONOCYTES ABSOLUTE MAN 0.51 K/mm3 (0.16-1.47); MONOCYTES PERCENT MAN 1 % (4-13); NEUTROPHILS ABSOLUTE MAN 37.67 K/mm3 (1.96-9.15); SEG NEUTROPHILS PERCENT MAN 72 % (41-73); TOTAL CELLS COUNTED 100
[2019-09-22 14:13] LABS: MYELOCYTE ABSOLUTE MAN 3.09 K/mm3 (0.00-0.00); MYELOCYTE PERCENT MAN 6 % (0-0); PROMYELOCYTE ABSOLUTE MAN 1.54 K/mm3 (0.00-0.00); PROMYELOCYTE PERCENT MAN 3 % (0-0)
[2019-09-22] MEDS ORDERED: ASPIR 8181 MG PO (15:41)
[2019-09-22] MEDS ORDERED: HYDURE500 PO (15:42)
--- NOTE | 2019-09-22 18:09 | NUR ---
SHIFT SUMMARY PT ADMITTED FROM THE ER THIS RUSTAM. SHE IS A/O X 4 AND DENIES PAIN. SHE DOES REPORT THAT SHE HAS BEEN INCREASINGLY WEAK LATELY AND DID FALL AT HOME RECENTLY. SHE REPORTS THAT SHE HAS ACHE/DISCOMFORT IN HER LEFT SIDE SINCE BEFORE TAMIA THAT THE DR IS AWARE OF. SHE WAS ORIENTED TO HER ROOM, NURSING STAFF AND HER CALL LIGHT. SHE SAYS THAT SHE THINKS SHE WAS SUPPOSED TO BE TAKING SOME MEDS AT HOME PRESCRIBED BY HER PCP BUT SHE HAS NOT BEEN TAKING THEM. DR FINLEY ORDERED A REGULAR DIET AND A TRAY WAS ORDERED FOR DINNER. TELE IS IN PLACE AND HI LO DRIVER REPORTS SINUS RHYTHM. PT IS ABLE TO MAKE HER NEEDS KNOWN AND HAS HER CALL LIGHT IN REACH.
--- NOTE | 2019-09-22 20:32 | NUR ---
ASSUMED CARE. ARAMIS IS AOX3, COOPERATIVE. PALE AND APPEARS FATIQUED. APPETITE FAIR. LUNG SOUNDS CLEAR, NO COUGH OR CONGESTION NOTED. HR SINUS PER TELEMETRY. ABDOMIN DISTENDED, STATES SHE FEELS VERY BLOATED, PASSING SMALL AMOUNT OF GAS. WAITING FOR BOWELS TO MOVE SHE SAID. OLD CHRONIC SORE ON THE INNER CALF OF LEFT LEG. DENIES N/T. NO PAIN NOTED. AWAITING PHARMACY TO SEND DOWN MEDS. CALL LIGHT IN REACH.
[2019-09-23 00:12] LABS: Source, Urine Clean Catch
[2019-09-23 00:16] LABS: Appearance, Urine Hazy (Clear); Bilirubin, Urine Neg (Neg); Blood, Urine 5+ (Neg); Color, Urine Yellow (P-Yellow); Glucose Qualitative, Urine Neg (Neg); Ketones, Urine Neg (Neg); Leukocyte Esterase, Urine 2+ (Neg); Nitrite, Urine Neg (Neg); Protein, Urine Neg (Neg); Urobilinogen, Urine NORM (Normal)
[2019-09-23 00:36] LABS: Amorphous Light (0-Heavy); Bacteria Many /hpf; Mucus Light (0-Heavy); Squamous Epithelial Cells Rare /hpf (Few)
[2019-09-23 05:11] LABS: Hematocrit 24.7 % (33.0-51.0); Hemoglobin 7.6 g/dL (11.5-16.0); Mean Corpuscular HGB 27.1 pg (26.0-34.0); Mean Corpuscular HGB Conc 30.8 g/dL (31.5-36.5); Mean Corpuscular Volume 88 fL (80-100); Mean Platelet Volume 9.2 fL (9.1-12.4); NRBC ABSOLUTE 0.08 K/mm3 (0.00-0.02); NRBC Auto 0.2 /100 WBC (0.0-0.2); RDW Coefficient Variation 17.2 % (11.7-14.2); RDW Standard Deviation 54.7 fL (35.1-46.3); White Blood Cell Count 48.56 K/mm3 (4.00-11.30)
[2019-09-23 05:15] LABS: Platelet Count 2289 K/mm3 (150-400)
[2019-09-23 05:24] LABS: International Normalized Ratio 1.13
[2019-09-23 05:50] LABS: BAND PERCENT MAN 3 % (0-8); BASOPHILS ABSOLUTE MAN 2.42 K/mm3 (0.00-0.23); BASOPHILS PERCENT MAN 5 % (0-2); EOSINOPHILS ABSOLUTE MAN 1.45 K/mm3 (0.00-0.68); EOSINOPHILS PERCENT MAN 3 % (0-6); LYMPHOCYTES ABSOLUTE MAN 4.85 K/mm3 (0.84-5.20); LYMPHOCYTES PERCENT MAN 10 % (21-46); METAMYELOCYTE ABSOLUTE MAN 1.45 K/mm3 (0.00-0.00); METAMYELOCYTE PERCENT MAN 3 % (0-0); MONOCYTES ABSOLUTE MAN 0.97 K/mm3 (0.16-1.47); MONOCYTES PERCENT MAN 2 % (4-13); MYELOCYTE ABSOLUTE MAN 1.94 K/mm3 (0.00-0.00); MYELOCYTE PERCENT MAN 4 % (0-0); NEUTROPHILS ABSOLUTE MAN 34.96 K/mm3 (1.96-9.15); PROMYELOCYTE ABSOLUTE MAN 0.48 K/mm3 (0.00-0.00); PROMYELOCYTE PERCENT MAN 1 % (0-0); SEG NEUTROPHILS PERCENT MAN 69 % (41-73); TOTAL CELLS COUNTED 100
[2019-09-23 05:52] LABS: Alanine Aminotransfer (ALT/SGP 14 U/L (12-78); Albumin, Blood 2.4 g/dL (3.4-5.0); Albumin/Globulin Ratio 0.7 (0.8-1.8); Alk Phos 52 U/L (50-136); Anion Gap 6 mmol/L (6-16); Aspartate Aminotrans (AST/SGOT 16 U/L (12-37); Bilirubin, Total 0.3 mg/dL (0.1-1.0); Blood Urea Nitrogen 29 mg/dL (8-24); Bun/Creatinine Ratio 33.6 (12.0-20.0); CO2, Blood 26 mmol/L (21-32); Calcium, Blood 8.3 mg/dL (8.5-10.1); Chloride, Blood 105 mmol/L (98-108); Creatinine, Blood 0.86 mg/dL (0.40-1.00); Globulin, Blood 3.6 g/dL (2.2-4.0); Glomerular Filtration Rate >60 (60-); Glucose, Blood 109 mg/dL (70-99); Potassium, Blood 4.2 mmol/L (3.5-5.5); Sodium, Blood 137 mmol/L (136-145)
--- NOTE | 2019-09-23 05:55 | NUR ---
SHIFT SUMMARY: ARAMIS HAD A GOOD NIGHT, SLEEPING MAJORITY OF THE SHIFT. SHE DID HAVE AN INCONTIENT BOWEL MOVEMENT, LARGE, SOFT. UA WAS COLLECTED AND SENT. SHE DID NOT COMPLAIN OF PAIN THIS SHIFT. IV FLUIDS WERE STARTED. SHE WAS ABLE TO GET TO BSC FOR BATHROOM NEEDS WITH 1 ASSIST. VS WNL. MILD TEMP OF 99. WBC CAME DOWN TO 48.56 AND HER PLATLETS CAME DOWN TO 2289. TAKES HER MEDS WHOLE. CALL LIGHT REMAINED IN REACH AND USED APPROPRIATLY. WILL REPORT TO DAY SHIFT.
[2019-09-23 14:20] LABS: Hemoglobin 7.3 g/dL (11.5-16.0); Mean Corpuscular HGB 26.9 pg (26.0-34.0); Mean Corpuscular HGB Conc 31.7 g/dL (31.5-36.5); Mean Corpuscular Volume 85 fL (80-100); Mean Platelet Volume 9.3 fL (9.1-12.4); NRBC ABSOLUTE 0.04 K/mm3 (0.00-0.02); NRBC Auto 0.1 /100 WBC (0.0-0.2); RDW Standard Deviation 52.6 fL (35.1-46.3); Red Blood Cell Count 2.71 M/mm3 (3.80-5.20); White Blood Cell Count 38.64 K/mm3 (4.00-11.30)
[2019-09-23 14:23] LABS: Platelet Count 1607 K/mm3 (150-400)
[2019-09-23 15:43] LABS: BASOPHILS ABSOLUTE MAN 1.54 K/mm3 (0.00-0.23); BASOPHILS PERCENT MAN 4 % (0-2); EOSINOPHILS ABSOLUTE MAN 1.15 K/mm3 (0.00-0.68); EOSINOPHILS PERCENT MAN 3 % (0-6); LYMPHOCYTES ABSOLUTE MAN 3.09 K/mm3 (0.84-5.20); LYMPHOCYTES PERCENT MAN 8 % (21-46); METAMYELOCYTE ABSOLUTE MAN 0.38 K/mm3 (0.00-0.00); METAMYELOCYTE PERCENT MAN 1 % (0-0); MONOCYTES PERCENT MAN 0 % (4-13); MYELOCYTE ABSOLUTE MAN 0.77 K/mm3 (0.00-0.00); MYELOCYTE PERCENT MAN 2 % (0-0); NEUTROPHILS ABSOLUTE MAN 31.29 K/mm3 (1.96-9.15); PROMYELOCYTE ABSOLUTE MAN 0.38 K/mm3 (0.00-0.00); PROMYELOCYTE PERCENT MAN 1 % (0-0); SEG NEUTROPHILS PERCENT MAN 81 % (41-73); TOTAL CELLS COUNTED 100
--- NOTE | 2019-09-23 15:47 | NUR ---
CALLED DR RODRIGUEZ OFFICE, CRIMINAL RESEARCH SPECIALIST STATE THAT THEY WILL REMIND HIM TO COME BUT THAT HE IS HAVING A VERY BUSY DAY. [address] GALLO, PT'S HBG IS DOWN TO 7.3 AND SHE IS VERY SOB WITH EXERTION AND VERY TIRED, DR GALLO WANTS TO HOLD OFF TRANSFUSING HER UNTIL FOR NOW, AWAITING DR LOCKWOOD. WILL RECHECK H&H IN AM. CALLED PT'S SISTER WITH PT'S PERMISSION, SHE STATES PT HAS LOTS OF CONFUSION AT BASELINE, PALLIATIVE CARE TO SEE PT
--- NOTE | 2019-09-23 16:20 | NUR ---
SHIFT SUMMARY KYLAH COMPLAINED OF PAIN AND GOT IV FENTANYL AND PO OXY, NEITHER OF WHICH WORKED WELL, WE WILL TRY DILAUDID THIS AFTERNOON. SBA TO BSC, BED ALARM ON, PT OCCASIONALLY FORGETS TO CALL. VERY SOB ON EXERTION AND VERY TIRED. MIVF RUNNING. TOOK MEDS PRESCRIBED. SHOWING SOME SIGNS OF CONFUSION, PALLIATIVE CARE NOW ON BOARD, SEE THEIR NOTE
--- NOTE | 2019-09-23 18:21 | NUR ---
pt resting expresses great fatigue. She denies headache or blurred vision. States she has been sleeping most of the time. denies shorness of breath or pressure in chest. soem aches and pains to back and extremities. He main complaint is constant pain and pressure to her abdoemn she feels like she has colic and belching most of the time. She sits in her chair most of the day with a vibrating back massage wand on her belly and left flank to help with the pain. She see's doctor tay and her support system is her sister. She does not remeber what the doctor told her about her care plan. She does not know if her treatments are palliative or curative. She states she has a polst at home but does not remeber what it says. The nurse spoke with her sister about her care and asked her to find the polst. Awaiting consult from doctor gonzales and will assist with plan of care. will review prn meds for pain.
--- NOTE | 2019-09-23 22:42 | NUR ---
1939 PT CONTINUES TO C/O NAUSEA; ZOFRAN 8MG IVP GIVEN ORDERED. 2029 NO NAUSEA VOICED; RESTING COMFORTABLY.
--- NOTE | 2019-09-24 04:55 | NUR ---
SHIFT SUMMARY: 89 Y/O FEMALE RESTED COMFORTABLY ALL SHIFT AFTER INITIALLY HAVE NAUSEA WITH ZOFRAN 8MG IVP GIVEN WITH RELIEF NOTED; PT ALERT AND ORIENTED X 2, ABLE TO FOLLOW SIMPLE VERBAL COMMANDS; PTS HG YESTERDAY WAS 7.3 WITH AM LABS PENDING YET; BED ALARM APPLIED, BED LOW POSITION WITH CALL LIGHT AT SIDE.
[2019-09-24 05:09] LABS: Hemoglobin 7.7 g/dL (11.5-16.0); Mean Corpuscular HGB 26.9 pg (26.0-34.0); Mean Corpuscular HGB Conc 30.8 g/dL (31.5-36.5); Mean Corpuscular Volume 87 fL (80-100); Mean Platelet Volume 9.2 fL (9.1-12.4); NRBC ABSOLUTE 0.03 K/mm3 (0.00-0.02); NRBC Auto 0.1 /100 WBC (0.0-0.2); RDW Coefficient Variation 17.1 % (11.7-14.2); RDW Standard Deviation 53.8 fL (35.1-46.3); Red Blood Cell Count 2.86 M/mm3 (3.80-5.20); White Blood Cell Count 27.87 K/mm3 (4.00-11.30)
[2019-09-24 05:23] LABS: Platelet Count 2287 K/mm3 (150-400)
[2019-09-24 05:57] LABS: Alanine Aminotransfer (ALT/SGP 16 U/L (12-78); Albumin, Blood 2.3 g/dL (3.4-5.0); Albumin/Globulin Ratio 0.6 (0.8-1.8); Alk Phos 51 U/L (50-136); Anion Gap 5 mmol/L (6-16); Aspartate Aminotrans (AST/SGOT 18 U/L (12-37); Bilirubin, Total 0.3 mg/dL (0.1-1.0); Blood Urea Nitrogen 22 mg/dL (8-24); Bun/Creatinine Ratio 28.9 (12.0-20.0); CO2, Blood 27 mmol/L (21-32); Calcium, Blood 8.1 mg/dL (8.5-10.1); Chloride, Blood 107 mmol/L (98-108); Creatinine, Blood 0.76 mg/dL (0.40-1.00); Globulin, Blood 3.6 g/dL (2.2-4.0); Glomerular Filtration Rate >60 (60-); Glucose, Blood 103 mg/dL (70-99); Potassium, Blood 4.1 mmol/L (3.5-5.5); Sodium, Blood 139 mmol/L (136-145); Total Protein, Blood 5.9 g/dL (6.4-8.2)
[2019-09-24 06:08] LABS: BAND PERCENT MAN 1 % (0-8); BASOPHILS ABSOLUTE MAN 1.95 K/mm3 (0.00-0.23); BASOPHILS PERCENT MAN 7 % (0-2); EOSINOPHILS ABSOLUTE MAN 0.83 K/mm3 (0.00-0.68); EOSINOPHILS PERCENT MAN 3 % (0-6); LYMPHOCYTES ABSOLUTE MAN 1.67 K/mm3 (0.84-5.20); LYMPHOCYTES PERCENT MAN 6 % (21-46); METAMYELOCYTE ABSOLUTE MAN 0.27 K/mm3 (0.00-0.00); METAMYELOCYTE PERCENT MAN 1 % (0-0); MONOCYTES PERCENT MAN 0 % (4-13); MYELOCYTE ABSOLUTE MAN 1.11 K/mm3 (0.00-0.00); MYELOCYTE PERCENT MAN 4 % (0-0); NEUTROPHILS ABSOLUTE MAN 22.01 K/mm3 (1.96-9.15); SEG NEUTROPHILS PERCENT MAN 78 % (41-73); TOTAL CELLS COUNTED 100
--- NOTE | 2019-09-24 17:38 | NUR ---
Review of pt nausea and pain. pt paler today and affect more falt. States she is afraid to the nausea and that it has finally stoped. will review with phsycian plan pt will need mor symptom managment
--- NOTE | 2019-09-24 19:23 | NUR ---
SHIFT SUMMARY: PERSISTENT NAUSEA AND L ABD/FLANK PAIN; MEDICATED PER EMAR WITH MINIMAL RELIEF. PATIENT SLEPT MOST OF THE DAY. DOES NOT REQUEST PAIN OR NAUSEA MEDICATIONS AND TENDS TO DOWNPLAY HOW SHE FEELS. EVALS BY PT AND OT TODAY. USING BSC WITH ASSISTANCE. NEPHEW VISITED THIS MORNING.
--- NOTE | 2019-09-25 06:33 | NUR ---
SHIFT SUMMARY: NIMA IS A&OX3, RESPONDS APPROPRIATELY. VSS, NO ACUTE EVENTS OVERNIGHT. SHE IS A ONE PERSON ASSIST TO THE BEDSIDE COMMODE. IV TO L AC PATENT. SHE REPORTS ADEQUATE PAIN CONTROL WITH PERCOCET. SHE USES HER CALL LIGHT APPROPRIATELY. BED ALARM ON FOR SAFETY, NO IMPULSIVE BEHAVIOR DEMONSTRATED OVERNIGHT. SHE IS LYING IN BED WITH HER CALL LIGHT IN REACH. WILL REPORT TO DAY SHIFT RN.
[2019-09-25 08:32] LABS: Hematocrit 25.1 % (33.0-51.0); Hemoglobin 7.9 g/dL (11.5-16.0); Mean Corpuscular HGB 27.2 pg (26.0-34.0); Mean Corpuscular HGB Conc 31.5 g/dL (31.5-36.5); Mean Corpuscular Volume 87 fL (80-100); Mean Platelet Volume 9.2 fL (9.1-12.4); NRBC ABSOLUTE 0.12 K/mm3 (0.00-0.02); NRBC Auto 0.7 /100 WBC (0.0-0.2); RDW Coefficient Variation 17.5 % (11.7-14.2); White Blood Cell Count 18.29 K/mm3 (4.00-11.30)
[2019-09-25 08:40] LABS: Platelet Count 2294 K/mm3 (150-400)
--- NOTE | 2019-09-25 17:58 | NUR ---
PT IS A/OX3, PLEASANT AND COOPERATIVE, THE PT IS UP IND TO THE BSC, THE PT APPEARS TO BE BREATHING EASILY ON RA AT REST, THE PT WAS MEDICATED FOR PAIN AND NAUSEA X1 SO FAR TODAY, THE PT WORKED WITH THE PHYSICAL THERAPIST TODAY, OTHER LOPES THE PT RESTED IN BED FOR MOST OF THE DAY, CALL LIGHT IN REACH, PT HAD A CH PLT LAB TODAY, DR. GALLO WAS NOTIFIED, NO OTHER CHANGES NOTICED THIS SHIFT
--- NOTE | 2019-09-25 22:08 | NUR ---
PT VOICED NAUSEA, RECEIVED PHENERGAN IV PER MD ORDERS. ALERT AND ORIENTED. ASSISTED TO BEDSIDE COMMODE. ABLE TO GET BACK IN BED BY SELF. CALL LIGHT IN REACH. WILL CONTINUE TO MONITOR
[2019-09-26 08:18] LABS: Hemoglobin 7.2 g/dL (11.5-16.0); Mean Corpuscular HGB 27.2 pg (26.0-34.0); Mean Corpuscular HGB Conc 31.3 g/dL (31.5-36.5); Mean Corpuscular Volume 87 fL (80-100); Mean Platelet Volume 8.9 fL (9.1-12.4); NRBC ABSOLUTE 0.07 K/mm3 (0.00-0.02); NRBC Auto 0.4 /100 WBC (0.0-0.2); RDW Coefficient Variation 17.4 % (11.7-14.2); RDW Standard Deviation 53.1 fL (35.1-46.3); Red Blood Cell Count 2.65 M/mm3 (3.80-5.20); White Blood Cell Count 16.36 K/mm3 (4.00-11.30)
[2019-09-26 08:21] LABS: Platelet Count 2203 K/mm3 (150-400)
[2019-09-26 08:39] LABS: BASOPHILS ABSOLUTE MAN 1.14 K/mm3 (0.00-0.23); BASOPHILS PERCENT MAN 7 % (0-2); EOSINOPHILS ABSOLUTE MAN 0.81 K/mm3 (0.00-0.68); EOSINOPHILS PERCENT MAN 5 % (0-6); LYMPHOCYTES ABSOLUTE MAN 2.45 K/mm3 (0.84-5.20); LYMPHOCYTES PERCENT MAN 15 % (21-46); METAMYELOCYTE ABSOLUTE MAN 0.16 K/mm3 (0.00-0.00); METAMYELOCYTE PERCENT MAN 1 % (0-0); MONOCYTES ABSOLUTE MAN 0.16 K/mm3 (0.16-1.47); MONOCYTES PERCENT MAN 1 % (4-13); NEUTROPHILS ABSOLUTE MAN 11.61 K/mm3 (1.96-9.15); SEG NEUTROPHILS PERCENT MAN 71 % (41-73); TOTAL CELLS COUNTED 100
--- NOTE | 2019-09-26 17:59 | NUR ---
SHIFT SUMMARY CONTUES TO C/O LUQ PAIN/GEN ABD PAIN. SCHEDULED, LONG ACTING PAIN MEDICATION ADDED TO USE IN CONJUNCTION WITH PRN. OFTEN REPORTS PAIN LEVEL OF 8, 6 BEING AN ACCEPTABLE LEVEL OF PAIN. MD PICHARDO, K PAD IN PLACE, NURSING FREQUENTLY OFFERING REPOSITIONING AND THERAPEUTIC PRESENCE. REPORTS OF NAUSEA ARE SUBSIDED WITH PRN MEDICATIONS; GINGERALE ALSO GIVEN. NO VOMITING/WRECHING. PATIENT HAS FAIR APPETITE. THIS RN ORDERED ENSURE BID. VRE PRESENT ON URINE CULTURE, HOSPITALIST NOTIFIED TODAY AT 1530. CONTINUES TO RUN LOW GRADE TEMPS, WBC'S TRENDING DOWN. WILL CONTINUE TO MONITOR. CALL LIGHT WITHIN REACH. INDEPENDENT WITH ADL'S. REFUSED OUT OF BED TO CHAIR THIS SHIFT.
[2019-09-27 04:56] LABS: BASOPHILS ABSOLUTE AUTO 0.93 K/mm3 (0.00-0.23); BASOPHILS PERCENT AUTO 7 % (0-2); Hematocrit 23.3 % (33.0-51.0); Hemoglobin 7.3 g/dL (11.5-16.0); Mean Corpuscular HGB 27.2 pg (26.0-34.0); Mean Corpuscular HGB Conc 31.3 g/dL (31.5-36.5); Mean Corpuscular Volume 87 fL (80-100); Mean Platelet Volume 8.9 fL (9.1-12.4); NRBC ABSOLUTE 0.07 K/mm3 (0.00-0.02); NRBC Auto 0.5 /100 WBC (0.0-0.2); RDW Coefficient Variation 17.6 % (11.7-14.2); RDW Standard Deviation 53.3 fL (35.1-46.3); Red Blood Cell Count 2.68 M/mm3 (3.80-5.20); White Blood Cell Count 14.22 K/mm3 (4.00-11.30)
[2019-09-27 05:20] LABS: EOSINOPHILS PERCENT AUTO 2 % (0-6); IMMATURE GRAN ABSOLUTE AUTO 0.19 K/mm3 (0.00-0.10); IMMATURE GRAN PERCENT AUTO 1 % (0-1); LYMPHOCYTES ABSOLUTE AUTO 2.18 K/mm3 (0.84-5.20); LYMPHOCYTES PERCENT AUTO 15 % (21-46); MONOCYTES ABSOLUTE AUTO 0.05 K/mm3 (0.16-1.47); MONOCYTES PERCENT AUTO 0 % (4-13); NEUTROPHILS ABSOLUTE AUTO 10.57 K/mm3 (1.96-9.15); NEUTROPHILS PERCENT AUTO 74 % (41-73)
[2019-09-27 05:21] LABS: Platelet Count 2269 K/mm3 (150-400)
--- NOTE | 2019-09-27 06:46 | NUR ---
SHIFT SUMMARY PT IS AN 89 Y/O FEMALE, ADMITTED FOR CML. SHE IS A&O X 3, INDEPENDENT IN THE ROOM. PT WAS MEDICATED FOR NAUSEA AT HS WITH PRN ZOFRAN AND THIS AM WITH PRN REGLAN. SHE WAS MEDICATED FOR PAIN WITH SCHEDULED OXYCONTIN AND PRN OXYCODONE FOR 8/10 LUQ PAIN. NO COMPLAINTS OF SOB. VITAL SIGNS STABLE. NO ACUTE CHANGES IN PT CONDITION NOTED DURING THE NIGHT. WILL CONTINUE TO MONITOR AND TREAT PER EMAR UNTIL HAND OFF TO DAY SHIFT RN.
--- NOTE | 2019-09-27 19:45 | NUR ---
SHIFT SUMMARY: PT IS A&O AND A 1 PERSON ASSIST IN ROOM. SHE HAS REPORTED NAUSEA THIS AM AND WAS MEDICATED PER EMAR. SHE VOMITED THIS AM BUT SINCE THIS AFTER NOON SHE HAS REPORTED NO NEW NAUSEA. SHE ALSO REPORTS PAIN BUT STATES THAT IT IS TOLERABLE AND DENIES ANY ADDITIONAL MEDICATION FOR IT. SHE DOES TAKE HER SCHEDULED PAIN MEDS. DUE TO THE NAUSEA SHE DID NOT WORK WITH OT OR PT TODAY. SHE HAS BEEN COOPERATIVE AND PLEASANT. VSS. GAVE REPORT TO NIGHT RN.
[2019-09-27 22:06] LABS: B2A2 TRANSCRIPT 36.4139 % (.); B3A2 TRANSCRIPT 25.5604 % (.)
--- NOTE | 2019-09-28 02:33 | NUR ---
09/27/192021 PT LYING IN BED, REPORTS PAIN IN L SIDE, WILL GIVE PAIN MEDS AND EVAL FOR EFFECT. PT REPORTS SOB THAT INCREASES WITH EXERTION AND WITH PAIN, ON RA AT 96%. PT'S IV IS INFLITRATED, WILL START NEW IV. PT REPORTS NAUSEA, WILL GIVE NAUSEA MED AND EVAL FOR EFFECT. NO OTHER APPARENT SIGNS OF DISTRESS. CALL LIGHT IS IN REACH.
--- NOTE | 2019-09-28 03:00 | NUR ---
09/27/19 2200 PT LYING IN BED, EYES CLOSED, APPEARS TO BE RESTING. WAKES EASILY TO VERBAL STIMULI. NO APPARENT SIGNS OF DISTRESS. CALL LIGHT IS IN REACH.
--- NOTE | 2019-09-28 03:01 | NUR ---
0200 PT LYING IN BED, EYES CLOSED, APPEARS TO BE RESTING. BREATHING IS EVEN, UNLABORED. NO APPARENT SIGNS OF DISTRESS. CALL LIGHT IS IN REACH.
--- NOTE | 2019-09-28 03:01 | NUR ---
0000 PT LYING IN BED, EYES CLOSED, APPEARS TO BE RESTING. BREATHING IS EVEN, UNLABORED. NO APPARENT SIGNS OF DISTRESS. CALL LIGHT IS IN REACH.
--- NOTE | 2019-09-28 05:16 | NUR ---
PT LYING IN BED, EYES CLOSED, APPEARS TO BE RESTING. WAKES EASILY TO VERBAL STIMULI. NO APPARENT SIGNS OF DISTRESS. CALL LIGHT IS IN REACH.
--- NOTE | 2019-09-28 05:16 | NUR ---
PT IS AAO X 4, ON RA AT 95%. PT REPORTED L SIDE PAIN, GOT PERCOCET X 1. PT REPORTED NAUSEA, GOT COMPAZINE X 1.
--- NOTE | 2019-09-28 06:02 | NUR ---
PT LYING IN BED, EYES CLOSED, APPEARS TO BE RESTING. BREATHING IS EVEN, UNLABORED. NO APPARENT SIGNS OF DISTRESS. CALL LIGHT IS IN REACH. NO OTHER CHANGES THIS SHIFT.
[2019-09-28 08:25] LABS: Hematocrit 23.7 % (33.0-51.0); Hemoglobin 7.5 g/dL (11.5-16.0); Mean Corpuscular HGB 27.1 pg (26.0-34.0); Mean Corpuscular HGB Conc 31.6 g/dL (31.5-36.5); Mean Corpuscular Volume 86 fL (80-100); Mean Platelet Volume 9.1 fL (9.1-12.4); NRBC ABSOLUTE 0.09 K/mm3 (0.00-0.02); NRBC Auto 0.5 /100 WBC (0.0-0.2); RDW Coefficient Variation 17.9 % (11.7-14.2); RDW Standard Deviation 53.1 fL (35.1-46.3); Red Blood Cell Count 2.77 M/mm3 (3.80-5.20)
[2019-09-28 08:27] LABS: Platelet Count 2435 K/mm3 (150-400)
--- NOTE | 2019-09-28 17:28 | NUR ---
SHIFT SUMMARY PATIENT IS ALERT AND ORIENTED THIS SHIFT. PATIENT IS INDEPENDENT TO THE BEDSIDE COMODE. PATIENT STATES CONTINUED NAUSEA THROUGHOUT THIS SHIFT. PATIENT MEDICATED MULTIPLE TIMES FOR NAUSEA THIS SHIFT WITHOUT RESOLUTION. PATIENT IS FRIENDLY AND COOPERATIVE WITH CARE. PATIENT WORKED WITH PT/OT THIS SHIFT. PATIENT'S IV REPLACE THIS AFTERNOON DUE TO KINK CAUSING IT TO BE UNUSABLE. PATIENT IS CURRENTLY SITTING UP IN THE BED WATCHING TELEVISION.
--- NOTE | 2019-09-28 18:51 | NUR ---
Initial spiritual care note: Mrs. Dejesus reports a strong, life-long lilian that sustains her. She was appreciaitve of lilian sharing and prayer. She lives with a niece and feels well-supported and loved. She was tired so visit kept short. Mrs. Dejesus has hope for the future. I will remain available.
--- NOTE | 2019-09-29 00:45 | NUR ---
09/28/192007 PT LYING IN BED, REPORTS NAUSEA. REPORTS LLQ PAIN. GAVE PAIN AND NAUSEA MEDS, WILL EVAL FOR EFFECT. NO OTHER APPARENT SIGNS OF DISTRESS. CALL LIGHT IS IN REACH.
--- NOTE | 2019-09-29 00:46 | NUR ---
09/28/19 2200 PT LYING IN BED, AWAKE, WATCHING TV. NO APPARENT SIGNS OF DISTRESS. CALL LIGHT IS IN REACH.
--- NOTE | 2019-09-29 00:47 | NUR ---
09/28/19 2341 PT JUST GETTING BACK IN TO BED FROM USING BSC. PT REPORTED PAIN AND NAUSEA, GAVE PAIN AND NAUSEA MEDS. PT WENT FROM AAAO X 4 AND TALKING TO DEEPLY ASLEEP AND SNORING LOUDLY IN THE MIDDLE OF TALKING. ATTEMPTED TO WAKE HER UP AND SHE DID NOT WAKE. STERNAL RUBBED PT AND SHE DID NOT WAKE UP. STERNAL RUBBED PT AGAIN AND SHE OPENED HER EYES AND STARED BLANKLY UP AT THE CEILING BUT DID NOT RESPOND VERBALLY. SHE NEVER STOPPED BREATHING AND SHE NEVER LOST HER PULSE. CALLED AN DEPARTMENT ASSISTANT. THEN STERNAL RUBBED PT AGAIN AND SHE THEN BECAME MORE ALERT AND STARTED TALKING AGAIN. SHE WAS ABLE TO STATE HER NAME, , THE YEAR AND DAY AND MONTH, WHERE SHE WAS, AND WHO THE PRESIDENT WAS. BS WAS CHECKED, IT WAS 117. VS CHECKED, INITIALLY THE BP WAS 181/91. VS RECHECK A COUPLE MORE TIMES AFTER THAT, BP WAS 153/75 AND THEN 146/71. NEURO CHECK DONE DURING DEPARTMENT ASSISTANT AFTER PT WAS ALERT AGAIN, NEURO'S WERE GOOD. IT IS POSSIBLE THAT SHE HAD A REACTION TO THE AMBIEN SHE RECIEVED AT . DC'D AMBIEN AND ADDED IT TO HER ALLERGIES. WILL DO NEURO CHECKS PRN, DR SUGGS 1L NS. WILL CONTINUE TO CHECK ON PT. CALL LIGHT IS IN REACH.
--- NOTE | 2019-09-29 00:56 | NUR ---
PT REPORTS SHE IS DOING OK BUT HER MOUTH IS DRY, MOVED HER WATER CLOSER TO HER, SHE IS ABLE TO DRINK ON HER OWN. PT IS STILL AAO X 4. DENIES NEED FOR ANYTHING ELSE AT THIS TIME. NO OTHER APPARENT SIGNS OF DISTRESS. CALL LIGHT IS IN REACH.
--- NOTE | 2019-09-29 02:07 | NUR ---
Assumed care of patient at 0115. Patient was sleeping, but woke easily to voice and was alert and oriented times three. C/O pain in wrist and asking for pain medicine which was last given at 2343. Explained to patient that med not available until 329. Offered ice or heat for relief. Patient chose to use kpad and pillow elevation. TM
--- NOTE | 2019-09-29 03:42 | NUR ---
PT IS AAO X 4, ON RA AT 94%. PT HAS NAUSEA, GOT REGLAN X 1 AND COMPAZINE X 1. PT HAS LLQ PAIN, GOT OXYCODONE X 2 AND HAS SCHEDULED OXYCONTIN. PT DECLINES SCD'S. PT HAD EPISODE OF SEDATION AND NOT RESPONDING VERBALLY WELL STARING BLANKLY AT CEILING WITHOUT VERBALLY RESPONDING, IT LASTED ABOUT 5 MIN. A FLANGER WAS CALLED BUT PT QUICKLY RECOVERED AND WAS BACK TO BEING AAO X 4. IT IS POSSIBLE THAT SHE HAD A REACTION TO THE AMBIEN THAT WAS NEWLY ORDERED AND GIVEN FOR THE FIRST TIME AT . AMBIEN WAS DC'D OFF OF HER MEDICATIONS AND ADDED AN ALLERGY. ASSESSMENT AT THE TIME OF THE FLANGER AFTER THE PT HAD RECOVERED, NEURO'S WERE GOOD, VS-BP WAS ELEVATED INITIALLY AT 181/91 BUT THE NEXT CHECK IT WAS 146/71, OTHERWISE VS WERE STABLE. BS WAS 117. PT WAS ABLE TO ANSWER ALL ORIENTATION QUESTIONS APPROPRIATELY. THOUGH ABOUT 0230 IT WAS DISCOVERED THAT SHE HAD AN EPISODE OF INCONTINANCE OF BOTH BOWEL AND URINE AND THIS PT IS NORMALLY CONTINANT.
[2019-09-29 05:26] LABS: Hematocrit 21.7 % (33.0-51.0); Hemoglobin 6.7 g/dL (11.5-16.0); Mean Corpuscular HGB 27.6 pg (26.0-34.0); Mean Corpuscular HGB Conc 30.9 g/dL (31.5-36.5); Mean Corpuscular Volume 89 fL (80-100); Mean Platelet Volume 8.8 fL (9.1-12.4); NRBC ABSOLUTE 0.06 K/mm3 (0.00-0.02); NRBC Auto 0.3 /100 WBC (0.0-0.2); RDW Coefficient Variation 17.4 % (11.7-14.2); RDW Standard Deviation 53.1 fL (35.1-46.3); Red Blood Cell Count 2.43 M/mm3 (3.80-5.20); White Blood Cell Count 20.33 K/mm3 (4.00-11.30)
[2019-09-29 05:34] LABS: Anion Gap 5 mmol/L (6-16); Blood Urea Nitrogen 28 mg/dL (8-24); Bun/Creatinine Ratio 39.7 (12.0-20.0); CO2, Blood 29 mmol/L (21-32); Calcium, Blood 8.1 mg/dL (8.5-10.1); Chloride, Blood 99 mmol/L (98-108); Creatinine, Blood 0.71 mg/dL (0.40-1.00); Glomerular Filtration Rate >60 (60-); Glucose, Blood 110 mg/dL (70-99); Potassium, Blood 4.2 mmol/L (3.5-5.5); Sodium, Blood 133 mmol/L (136-145)
[2019-09-29 05:56] LABS: Platelet Count 1819 K/mm3 (150-400)
[2019-09-29 06:32] LABS: BASOPHILS PERCENT MAN 2 % (0-2); EOSINOPHILS PERCENT MAN 0 % (0-6); LYMPHOCYTES ABSOLUTE MAN 1.21 K/mm3 (0.84-5.20); LYMPHOCYTES PERCENT MAN 6 % (21-46); MONOCYTES PERCENT MAN 0 % (4-13); SEG NEUTROPHILS PERCENT MAN 92 % (41-73); TOTAL CELLS COUNTED 100
--- NOTE | 2019-09-29 19:18 | NUR ---
SHIFT SUMMARY PATIENT ALERT AND ORIENTED THIS SHIFT. PATIENT WORKED WITH PT THIS SHIFT. PATIENT INDEPENDENT TO THE BEDSIDE COMODE. PATIENT HAD 1 UNIT OF RED BLOOD CELLS INFUSED THIS EVENING. PATIENT REMAINS LETHARGIC. PATIENT NAUSEOUS THROUGHOUT THIS SHIFT WITH NAUSEA MEDICATIONS THROUGHOUT THE SHIFT. PATIENT HAD 400 ML OF EMISIS THIS AFTERNOON. PATIENT CURRENTLY LAYING IN BED.
--- NOTE | 2019-09-30 05:03 | NUR ---
SHIFT SUMMARY PT CONTINUES TO HAVE PAIN AND NAUSEA. HOWEVER THIS EVENING PT REPORTED PAIN TO BE IN LHIP RATHER THAN LUQ OF ABD. MEDICATED WITH SCHEDULED OXYCONTIN BEFORE BED AND ONCE MORE WITH PERCOCET FOR BREAKTHROUGH PAIN. ALSO MEDICATED X 1 W/ COMPAZINE. PT DID HAVE ONE EPISODE OF EMESIS. APPEARED TO BE WATER AND UNDIGESTED BREAD, APPROX 100 ML. PT REPORTS THAT SHE FEELS VERY WEAK AND TIRED AND GENERALLY UNCOMFORTABLE. PT HAD ONE BM TONIGHT, SMALL BROWN AND SOFT. PT DID APPEAR TO SLEEP THROUGH MOST OF THE NIGHT BUT REPORTED DISCOMFORT WHENEVER AWAKE. VITAL SIGNS STABLE. WILL CONTINUE TO MONITOR AND REPORT TO DAY RN.
[2019-09-30 05:12] LABS: Hematocrit 22.8 % (33.0-51.0); Hemoglobin 7.5 g/dL (11.5-16.0); Mean Corpuscular HGB 28.4 pg (26.0-34.0); Mean Corpuscular HGB Conc 32.9 g/dL (31.5-36.5); Mean Corpuscular Volume 86 fL (80-100); Mean Platelet Volume 8.6 fL (9.1-12.4); NRBC ABSOLUTE 0.05 K/mm3 (0.00-0.02); NRBC Auto 0.5 /100 WBC (0.0-0.2); RDW Coefficient Variation 16.7 % (11.7-14.2); RDW Standard Deviation 47.5 fL (35.1-46.3); Red Blood Cell Count 2.64 M/mm3 (3.80-5.20); White Blood Cell Count 9.85 K/mm3 (4.00-11.30)
[2019-09-30 05:19] LABS: Platelet Count 1797 K/mm3 (150-400)
[2019-09-30 05:29] LABS: Anion Gap 5 mmol/L (6-16); Blood Urea Nitrogen 25 mg/dL (8-24); Bun/Creatinine Ratio 36.9 (12.0-20.0); CO2, Blood 29 mmol/L (21-32); Calcium, Blood 8.2 mg/dL (8.5-10.1); Chloride, Blood 101 mmol/L (98-108); Creatinine, Blood 0.68 mg/dL (0.40-1.00); Glomerular Filtration Rate >60 (60-); Glucose, Blood 107 mg/dL (70-99); Sodium, Blood 135 mmol/L (136-145)
[2019-09-30 06:01] LABS: BASOPHILS ABSOLUTE MAN 0.68 K/mm3 (0.00-0.23); BASOPHILS PERCENT MAN 7 % (0-2); EOSINOPHILS ABSOLUTE MAN 0.49 K/mm3 (0.00-0.68); EOSINOPHILS PERCENT MAN 5 % (0-6); LYMPHOCYTES ABSOLUTE MAN 1.18 K/mm3 (0.84-5.20); LYMPHOCYTES PERCENT MAN 12 % (21-46); MONOCYTES PERCENT MAN 0 % (4-13); NEUTROPHILS ABSOLUTE MAN 7.48 K/mm3 (1.96-9.15); SEG NEUTROPHILS PERCENT MAN 76 % (41-73); TOTAL CELLS COUNTED 100
--- NOTE | 2019-09-30 17:07 | NUR ---
PATIENT A/OX4, UP INDEPENDENTLY TO BSC, SBA TO RESTROOM. VSS, ON RA. TOLERATING SMALL AMOUNT OF REGULAR DIET. MEDICATING WITH COMPAZINE AND REGLAN FOR NAUSEA, NO EPISODES OF VOMITTING THIS SHIFT. SMALL SOFT INCONTINENT BM TODAY. PATIENT REPORTS PAIN TO LUQ ABDOMEN, SCHEDULED OXYCONTIN TO TREAT AND PERCOCET PRN FOR BREAKTHROUGH PAIN. 20G IV TO L HAND WNL AND SL. SLEPT WELL THIS AFTERNOON AND DOES WELL WITH ORAL MEDS WHEN PREMEDICATED WITH NAUSEA MEDICATION. CALM AND COOPERATIVE WITH CARE, CALLS APPROPRIATELY FOR ASSISTANCE.
[2019-10-01 04:45] LABS: Hematocrit 24.1 % (33.0-51.0); Hemoglobin 7.8 g/dL (11.5-16.0); Mean Corpuscular HGB 28.3 pg (26.0-34.0); Mean Corpuscular HGB Conc 32.4 g/dL (31.5-36.5); Mean Corpuscular Volume 87 fL (80-100); Mean Platelet Volume 8.6 fL (9.1-12.4); NRBC ABSOLUTE 0.04 K/mm3 (0.00-0.02); NRBC Auto 0.8 /100 WBC (0.0-0.2); RDW Coefficient Variation 17.3 % (11.7-14.2); RDW Standard Deviation 49.1 fL (35.1-46.3); Red Blood Cell Count 2.76 M/mm3 (3.80-5.20); White Blood Cell Count 5.03 K/mm3 (4.00-11.30)
[2019-10-01 04:53] LABS: Platelet Count 1745 K/mm3 (150-400)
--- NOTE | 2019-10-01 05:16 | NUR ---
SHIFT SUMMARY PT CONTINUED TO REPORT PAIN TO L HIP/ABD AND NAUSEA. MEDICATED AT BEDTIME WITH SCHEDULED OXYCONTIN 20 MG. PT SHORTLY AFTER FELL ASLEEP AND DENIED PAIN OR NAUSEA FOLLOWING UNTIL APPROX 0400 WHERE PT WOKE AND REPORTED FEELING VERY PAINFUL 10/10. MEDICATED W/ PERCOCET AND COMPAZINE. NO BM'S THIS SHIFT. HGB REMAINED STABLE AT 7.8. PLT REMAIN CRITICALLY HIGH AT 1745. PT OVERALL NOT FEELING WELL. CONTINUES TO ALSO FEEL VERY WEAK AND FATIGUED. ATTEMPTED TO EAT DINNER BUT WAS ONLY ABLE TO EAT MAYBE 10%. VITAL SIGNS STABLE. WILL CONTINUE TO MONITOR AND REPORT TO DAY RN.
[2019-10-01 05:52] LABS: Anion Gap 5 mmol/L (6-16); Blood Urea Nitrogen 25 mg/dL (8-24); Bun/Creatinine Ratio 39.9 (12.0-20.0); CO2, Blood 29 mmol/L (21-32); Calcium, Blood 8.4 mg/dL (8.5-10.1); Chloride, Blood 100 mmol/L (98-108); Creatinine, Blood 0.63 mg/dL (0.40-1.00); Glomerular Filtration Rate >60 (60-); Glucose, Blood 111 mg/dL (70-99); Sodium, Blood 134 mmol/L (136-145)
[2019-10-01 05:59] LABS: BASOPHILS PERCENT MAN 10 % (0-2); EOSINOPHILS PERCENT MAN 6 % (0-6); LYMPHOCYTES PERCENT MAN 10 % (21-46); MONOCYTES PERCENT MAN 0 % (4-13); NEUTROPHILS ABSOLUTE MAN 3.72 K/mm3 (1.96-9.15); SEG NEUTROPHILS PERCENT MAN 74 % (41-73); TOTAL CELLS COUNTED 100
--- NOTE | 2019-10-01 16:24 | NUR ---
review of medication for symptoms with nursing. pt and daughter are currently reviewing advance directive and having meaninful conversation about her future.
--- NOTE | 2019-10-01 17:36 | NUR ---
SHIFT SUMMARY PATIENT ALERT AND ORIENTED, FORGETFUL THIS SHIFT. PATIENT REMAINS NAUSEOUS WITH EPISODES OF VOMITING THIS SHIFT. PATIENT MEDICATED FOR NAUSEA THROUGHOUT THIS SHIFT WITH MINIMAL RELEIF. PATIENT'S DAUGHTER IN THE ROOM THIS SHIFT. EVE Gentile WITH PALLIATIVE CARE IN THE ROOM TO SPEAK WITH DAUGHTER. PATIENT CURRENTLY SITTING UP IN BED WATCHING TELEVISION.
--- NOTE | 2019-10-01 21:57 | NUR ---
2200 PT REQUESTS TO HAVE BENGAY OINTMENT FOR KNEE DISCOMFORT. WILL ASK NIGHT PROVIDER WHEN OPPURTUNITY PRESENTS OR PASS ON TO DAY RN.
--- NOTE | 2019-10-02 04:37 | NUR ---
FURNITURE INSPECTOR SUMMARY PT BEGAN SHIFT WITH C/O SEVER PAIN IN LEFT SIDE AND LEFT KNEE. PT WAS MEDICATED PER EMAR AND HEAT PACK WAS APPLIED TO KNEE. PT FELL ASLEEP AND REMAINED ASLEEP MOST OF THE NIGHT UNTIL 0 WHEN LAB CAME TO DRAW BLOOD. PT CURRENTLY RESTING IN BED WITH CALL LIGHT IN REACH.
[2019-10-02 04:57] LABS: Hematocrit 21.6 % (33.0-51.0); Mean Corpuscular HGB 28.5 pg (26.0-34.0); Mean Corpuscular HGB Conc 32.4 g/dL (31.5-36.5); Mean Corpuscular Volume 88 fL (80-100); Mean Platelet Volume 8.5 fL (9.1-12.4); NRBC ABSOLUTE 0.04 K/mm3 (0.00-0.02); NRBC Auto 1.4 /100 WBC (0.0-0.2); RDW Coefficient Variation 17.3 % (11.7-14.2); RDW Standard Deviation 50.3 fL (35.1-46.3); Red Blood Cell Count 2.46 M/mm3 (3.80-5.20); White Blood Cell Count 2.89 K/mm3 (4.00-11.30)
[2019-10-02 05:04] LABS: Platelet Count 1382 K/mm3 (150-400)
[2019-10-02 05:30] LABS: Anion Gap 4 mmol/L (6-16); Blood Urea Nitrogen 22 mg/dL (8-24); Bun/Creatinine Ratio 34.9 (12.0-20.0); CO2, Blood 29 mmol/L (21-32); Calcium, Blood 8.5 mg/dL (8.5-10.1); Chloride, Blood 100 mmol/L (98-108); Creatinine, Blood 0.63 mg/dL (0.40-1.00); Glomerular Filtration Rate >60 (60-); Glucose, Blood 105 mg/dL (70-99); Sodium, Blood 133 mmol/L (136-145)
[2019-10-02 05:42] LABS: BASOPHILS PERCENT MAN 7 % (0-2); EOSINOPHILS ABSOLUTE MAN 0.11 K/mm3 (0.00-0.68); EOSINOPHILS PERCENT MAN 4 % (0-6); LYMPHOCYTES ABSOLUTE MAN 0.63 K/mm3 (0.84-5.20); LYMPHOCYTES PERCENT MAN 22 % (21-46); MONOCYTES PERCENT MAN 0 % (4-13); NEUTROPHILS ABSOLUTE MAN 1.93 K/mm3 (1.96-9.15); SEG NEUTROPHILS PERCENT MAN 67 % (41-73); TOTAL CELLS COUNTED 100
--- NOTE | 2019-10-02 10:55 | NUR ---
AD completed. Took a copy of pt's POLST and AD and will hand deliver to medical records for input into the EMR. Pt's dtr in [place] is Sindhu's alternate healthcare solar sales representative and assessor. Pt's dtr Ami states she will take oringal and copy and have her sister sign them. Once they are signed by Cony, the [facility] healthcare solar sales representative and assessor, Ami states she will bring copies in for the EMR. Pt reports her pain is being controlled and is requesting to be medicated as she is starting to have some abd pain and nausea again. Nursing updated and will plan to medicate per EMAR.
--- NOTE | 2019-10-02 17:59 | NUR ---
ALERT. VERY DROWSEY THIS SHIFT. C/O NAUSEA AND PAIN T/O SHIFT AND MEDICATED FOR. UNLABORED RESPIRATIONS. OOB FOR MEALS. AWARE OF HBG 7.0 . TM
[2019-10-03 06:13] LABS: Anion Gap 7 mmol/L (6-16); Blood Urea Nitrogen 22 mg/dL (8-24); Bun/Creatinine Ratio 32.6 (12.0-20.0); CO2, Blood 29 mmol/L (21-32); Calcium, Blood 8.3 mg/dL (8.5-10.1); Chloride, Blood 100 mmol/L (98-108); Creatinine, Blood 0.68 mg/dL (0.40-1.00); Glomerular Filtration Rate >60 (60-); Glucose, Blood 109 mg/dL (70-99); Potassium, Blood 4.2 mmol/L (3.5-5.5); Sodium, Blood 136 mmol/L (136-145)
[2019-10-03 09:00] LABS: Hematocrit 21.7 % (33.0-51.0); Hemoglobin 6.8 g/dL (11.5-16.0); Mean Corpuscular HGB Conc 31.3 g/dL (31.5-36.5); Mean Corpuscular Volume 89 fL (80-100); Mean Platelet Volume 8.6 fL (9.1-12.4); NRBC ABSOLUTE 0.04 K/mm3 (0.00-0.02); NRBC Auto 4.4 /100 WBC (0.0-0.2); Platelet Count 752 K/mm3 (150-400); RDW Coefficient Variation 17.8 % (11.7-14.2); RDW Standard Deviation 50.9 fL (35.1-46.3); Red Blood Cell Count 2.43 M/mm3 (3.80-5.20)
[2019-10-03 09:02] LABS: White Blood Cell Count 0.91 K/mm3 (4.00-11.30)
[2019-10-03 09:43] LABS: BASOPHILS ABSOLUTE MAN 0.08 K/mm3 (0.00-0.23); BASOPHILS PERCENT MAN 9 % (0-2); EOSINOPHILS PERCENT MAN 1 % (0-6); LYMPHOCYTES PERCENT MAN 56 % (21-46); MONOCYTES PERCENT MAN 1 % (4-13); SEG NEUTROPHILS PERCENT MAN 33 % (41-73); TOTAL CELLS COUNTED 100
--- NOTE | 2019-10-03 13:10 | NUR ---
PATIENT VOMITED ABOUT 300 ML FLUID. REQUEST ANOTHER ANTI EMETIC FROM . COMPAZINE 25 NV Q4-6.
--- NOTE | 2019-10-03 16:36 | NUR ---
ALERT. ONE PERSON ASSIST TO CHAIR/BSC. DROWSEY THIS SHIFT. IV ANTIEMETICS D'C TODAY WITH P.O. AND [facility] AVAILABLE. FORGETFUL. APPEARED TO SLEEP EASILY AFTER MORNING PERCOCET WITH PAIN LEVEL" 2-3(1-10) " WHEN GIVEN LONG ACTING PAIN MED. AT NOON PATIENT STS "NOTHING HAS HELPED THE PAIN." AWARE OF LABS WITH HGB 6.8 AND WBC 0.91. IV PATENT. WCTM
--- NOTE | 2019-10-04 05:45 | NUR ---
SHIFT SUMMARY A/O, ABLE TO MAKE NEEDS KNOWN. COOPERATIVE WITH CARE. ANSWERS QUESTIONS APPROPRIATELY. C/O PAIN/DISCOMFORT WELL NAUSEA; MEDICATED PER EMAR. APPEARED TO REST MUCH OF SHIFT. UP WITH 1P ASSIST TO BSC. REMAINS HYPERTENSIVE; HOWEVER, ON TREND WITH PREVIOUS PRESSURES. NO OTHER ACUTE CHANGES NOTED. BED REAMINS IN LOWEST POSITION; ALARM ON. CALL LIGHT AND BELONGINGS WITHIN REACH. WCTM. REPORT TO ONCOMING RN.
[2019-10-04 09:08] LABS: Hemoglobin 6.8 g/dL (11.5-16.0); Mean Corpuscular HGB 28.9 pg (26.0-34.0); Mean Corpuscular HGB Conc 32.4 g/dL (31.5-36.5); Mean Corpuscular Volume 89 fL (80-100); Mean Platelet Volume 8.6 fL (9.1-12.4); NRBC ABSOLUTE 0.02 K/mm3 (0.00-0.02); NRBC Auto 2.2 /100 WBC (0.0-0.2); Platelet Count 885 K/mm3 (150-400); RDW Coefficient Variation 18.3 % (11.7-14.2); RDW Standard Deviation 50.4 fL (35.1-46.3); Red Blood Cell Count 2.35 M/mm3 (3.80-5.20)
[2019-10-04 09:16] LABS: White Blood Cell Count 0.89 K/mm3 (4.00-11.30)
[2019-10-04 09:38] LABS: BASOPHILS ABSOLUTE MAN 0.12 K/mm3 (0.00-0.23); BASOPHILS PERCENT MAN 14 % (0-2); EOSINOPHILS ABSOLUTE MAN 0.01 K/mm3 (0.00-0.68); EOSINOPHILS PERCENT MAN 2 % (0-6); LYMPHOCYTES PERCENT MAN 46 % (21-46); MONOCYTES ABSOLUTE MAN 0.01 K/mm3 (0.16-1.47); MONOCYTES PERCENT MAN 2 % (4-13); NEUTROPHILS ABSOLUTE MAN 0.32 K/mm3 (1.96-9.15); SEG NEUTROPHILS PERCENT MAN 36 % (41-73); TOTAL CELLS COUNTED 50
--- NOTE | 2019-10-04 11:00 | NUR ---
LATE ENTRY. SPOKE WITH DR. FLEMING ABOUT PT H&H. ONCOLOGIST CALLED TO DISCUSS POSSIBLE BLOOD TRANSFUSION PER DISCHARGE. DISCUSSED WITH DR. FLEMING PT WILL NOT RECIEVE BLOOD PRIOR TO DX.
[2019-10-04] MEDS ORDERED: PROC25S PR (13:43)
[2019-10-04] MEDS ORDERED: ONDA4ODT MM (13:43)
[2019-10-04] MEDS ORDERED: Percocet 5-3251 EACH PO (13:43)
[2019-10-04] MEDS ORDERED: SENN187 PO (13:44)
--- NOTE | 2019-10-04 15:12 | NUR ---
Met with Sindhu this afternoon. She is awake and alert and awaiting discharge to [facility] for rehab this afternoon. She confirms that she changed her code status over the weekend. Filled out a new POLST with her. DNR with limited interventions. She signed it and Dr. Acuña signed it. Copy taken and hand delivered to medical records. Blank AD placed in chart with new POLST for her to talk with her daughter again and decide how she would like to fill out the new AD to match her current wishes. Answered pt's questions. Nursing updated.
--- NOTE | 2019-10-04 18:12 | NUR ---
PT DISCHARGED FROM THE UNIT. POWERGLIDE REMOVED. PERSONAL BELONGINGS RETURNED. REPORT CALLED TO [facility]. TRANSPROT PICKED UP AND TRANSPORTED PT VIA WHEEL CHAIR AT 1600
[2019-10-11] MEDS ORDERED: NITR100CA PO (15:21)
[2019-10-11] MEDS ORDERED: SENN187 PO (15:21)
[2019-10-11] MEDS ORDERED: MELA3 PO (15:21)
[2019-10-11] MEDS ORDERED: Percocet 5-3251 EACH PO (15:22)
[2019-10-11] MEDS ORDERED: ONDA4ODT (15:22)
== END 2019-10-04 16:51 | DRG 840 ==
LOC: ER 12:42 → MEDS 17:21
PROVIDERS: Family Medicine; Hospitalist; Internal Medicine; Student in an Organized Health Care Education/Training Program; ADMIT Internal Medicine
DX: C92.10 Chronic myeloid leukemia, BCR/ABL-positive, not having achieved remission (principal); D61.1 Drug-induced aplastic anemia; D47.3 Essential (hemorrhagic) thrombocythemia; Z51.5 Encounter for palliative care; Z20.828 Contact with and (suspected) exposure to other viral communicable diseases; M16.0 Bilateral primary osteoarthritis of hip; F32.9 Major depressive disorder, single episode, unspecified; I45.10 Unspecified right bundle-branch block; G47.33 Obstructive sleep apnea (adult) (pediatric); D73.5 Infarction of spleen; Z66 Do not resuscitate; F03.90 Unspecified dementia, unspecified severity, without behavioral disturbance, psychotic disturbance, mood disturbance, and anxiety; T45.1X5A Adverse effect of antineoplastic and immunosuppressive drugs, initial encounter; I10 Essential (primary) hypertension; I48.0 Paroxysmal atrial fibrillation; R11.2 Nausea with vomiting, unspecified; T40.2X5A Adverse effect of other opioids, initial encounter
CPT/HCPCS: 36415; 36430; 80048; 80053; 81001; 81206; 81207; 82947; 83605; 83690; 85025; 85027; 85060; 85610; 85730; 86850; 86900; 86901; 86923; 87040; 87077; 87086; 87186; 93005; 93010; 97110; 97112; 97161; 97166; 97530; 97535; 99285-25; A9270-GY; J0780; J1170; J2405; J2765; J3010; J3480; J7030; J7040; P9040; U0002

== ENCOUNTER → 2019-10-11 15:03 | Emergency (ER) | payer OTHER ==
[~2019-10-11] VITALS: Ht 170.2 cm; Wt 77.1 kg
[~2019-10-11 15:03] MED LIST changes: +ASPIR 8181 MG PO; +MELA3 PO; +NITR100CA PO; +ONDA4ODT; +PROC25S PR; +Percocet 5-3251 EACH PO
[2019-10-11 15:39] LABS: Hematocrit 19.1 % (33.0-51.0); Hemoglobin 6.2 g/dL (11.5-16.0); Mean Corpuscular HGB 29.4 pg (26.0-34.0); Mean Corpuscular HGB Conc 32.5 g/dL (31.5-36.5); Mean Corpuscular Volume 91 fL (80-100); Mean Platelet Volume 10.8 fL (9.1-12.4); RDW Coefficient Variation 18.9 % (11.7-14.2); RDW Standard Deviation 48.5 fL (35.1-46.3); Red Blood Cell Count 2.11 M/mm3 (3.80-5.20)
[2019-10-11 15:47] LABS: BASOPHILS ABSOLUTE AUTO 0.01 K/mm3 (0.00-0.23); BASOPHILS PERCENT AUTO 2 % (0-2); EOSINOPHILS ABSOLUTE AUTO 0.01 K/mm3 (0.00-0.68); EOSINOPHILS PERCENT AUTO 2 % (0-6); IMMATURE GRAN PERCENT AUTO 0 % (0-1); LYMPHOCYTES ABSOLUTE AUTO 0.38 K/mm3 (0.84-5.20); LYMPHOCYTES PERCENT AUTO 78 % (21-46); MONOCYTES ABSOLUTE AUTO 0.02 K/mm3 (0.16-1.47); MONOCYTES PERCENT AUTO 4 % (4-13); NEUTROPHILS ABSOLUTE AUTO 0.07 K/mm3 (1.96-9.15); NEUTROPHILS PERCENT AUTO 14 % (41-73); Platelet Count 50 K/mm3 (150-400)
[2019-10-11 15:48] LABS: White Blood Cell Count 0.49 K/mm3 (4.00-11.30)
[2019-10-11 15:56] LABS: Alanine Aminotransfer (ALT/SGP 18 U/L (12-78); Albumin, Blood 2.2 g/dL (3.4-5.0); Albumin/Globulin Ratio 0.5 (0.8-1.8); Alk Phos 70 U/L (50-136); Anion Gap 6 mmol/L (6-16); Aspartate Aminotrans (AST/SGOT 10 U/L (12-37); Bilirubin, Total 0.4 mg/dL (0.1-1.0); Blood Urea Nitrogen 12 mg/dL (8-24); Bun/Creatinine Ratio 22.8 (12.0-20.0); CO2, Blood 28 mmol/L (21-32); Calcium, Blood 8.2 mg/dL (8.5-10.1); Chloride, Blood 95 mmol/L (98-108); Creatinine, Blood 0.53 mg/dL (0.40-1.00); Globulin, Blood 4.2 g/dL (2.2-4.0); Glomerular Filtration Rate >60 (60-); Glucose, Blood 112 mg/dL (70-99); Potassium, Blood 3.8 mmol/L (3.5-5.5); Sodium, Blood 129 mmol/L (136-145); Total Protein, Blood 6.4 g/dL (6.4-8.2)
== END | disposition home or self-care (01) ==
LOC: ER 15:03
PROVIDERS: Emergency Medicine
DX: D64.9 Anemia, unspecified (principal); I10 Essential (primary) hypertension; I48.0 Paroxysmal atrial fibrillation; Z88.0 Allergy status to penicillin; Z88.5 Allergy status to narcotic agent; Z88.8 Allergy status to other drugs, medicaments and biological substances; Z79.899 Other long term (current) drug therapy
CPT/HCPCS: 36415; 36430; 80053; 85025; 86850; 86900; 86901; 86923; 99283-25; J7030; P9040

== ENCOUNTER 2019-10-13 00:28 | Day surgery (SDC) | payer OTHER ==
--- NOTE | 2019-10-13 10:10 | NUR ---
PT ASSISTED TO BEDSIDE COMMODE. PT INCONTINENT OF LIQUID BLACK STOOL WITH FOUL ODOR. SAVED A SPECIMEN AND CALLED FOR AN ORDER FOR QUIAC. SPECIMENT SENT TO LAB.
[2019-10-13 10:58] LABS: Stool Occult Blood Guaiac 1 Pos (Neg)
[2019-10-13] MEDS ORDERED: ACET325 PO (11:37)
--- NOTE | 2019-10-13 12:31 | NUR ---
CALLED AND LEFT A MESSAGE FOR NURSE AT [facility] ABOUT PTS POSITIVE QUIAC STOOL.
== END 2019-10-13 12:15 | disposition home or self-care (01) ==
LOC: LAB 00:28 → ATC 00:28
PROVIDERS: Internal Medicine Hematology & Oncology
DX: C92.Z0 Other myeloid leukemia not having achieved remission (principal); I10 Essential (primary) hypertension; J45.909 Unspecified asthma, uncomplicated; G47.33 Obstructive sleep apnea (adult) (pediatric); Z88.0 Allergy status to penicillin; Z88.5 Allergy status to narcotic agent; Z88.8 Allergy status to other drugs, medicaments and biological substances; Z79.899 Other long term (current) drug therapy
CPT/HCPCS: 36415; 82272; 86850; 86900; 86901; 86923; J7050; P9016; P9035

== ENCOUNTER 2019-10-17 16:55 | Inpatient (IN) | payer OTHER ==
[~2019-10-17] VITALS: Ht 170.2 cm; Wt 75.5 kg
[2019-10-17 17:42] LABS: BASOPHILS PERCENT AUTO 0 % (0-2); EOSINOPHILS PERCENT AUTO 0 % (0-6); Hematocrit 25.5 % (33.0-51.0); Hemoglobin 8.2 g/dL (11.5-16.0); IMMATURE GRAN ABSOLUTE AUTO 0.01 K/mm3 (0.00-0.10); IMMATURE GRAN PERCENT AUTO 1 % (0-1); LYMPHOCYTES ABSOLUTE AUTO 0.69 K/mm3 (0.84-5.20); LYMPHOCYTES PERCENT AUTO 34 % (21-46); MONOCYTES ABSOLUTE AUTO 0.36 K/mm3 (0.16-1.47); MONOCYTES PERCENT AUTO 18 % (4-13); Mean Corpuscular HGB 30.5 pg (26.0-34.0); Mean Corpuscular HGB Conc 32.2 g/dL (31.5-36.5); Mean Corpuscular Volume 95 fL (80-100); Mean Platelet Volume 10.9 fL (9.1-12.4); NEUTROPHILS ABSOLUTE AUTO 0.97 K/mm3 (1.96-9.15); NEUTROPHILS PERCENT AUTO 48 % (41-73); Platelet Count 68 K/mm3 (150-400); RDW Coefficient Variation 21.2 % (11.7-14.2); Red Blood Cell Count 2.69 M/mm3 (3.80-5.20); White Blood Cell Count 2.03 K/mm3 (4.00-11.30)
[2019-10-17 18:06] LABS: Alanine Aminotransfer (ALT/SGP 12 U/L (12-78); Albumin, Blood 2.1 g/dL (3.4-5.0); Albumin/Globulin Ratio 0.4 (0.8-1.8); Alk Phos 89 U/L (50-136); Anion Gap 7 mmol/L (6-16); Aspartate Aminotrans (AST/SGOT 9 U/L (12-37); Bilirubin, Total 0.8 mg/dL (0.1-1.0); Blood Urea Nitrogen 12 mg/dL (8-24); Bun/Creatinine Ratio 24.6 (12.0-20.0); CO2, Blood 27 mmol/L (21-32); Calcium, Blood 8.5 mg/dL (8.5-10.1); Chloride, Blood 95 mmol/L (98-108); Creatinine, Blood 0.49 mg/dL (0.40-1.00); Globulin, Blood 4.9 g/dL (2.2-4.0); Glomerular Filtration Rate >60 (60-); Glucose, Blood 100 mg/dL (70-99); Sodium, Blood 129 mmol/L (136-145)
[2019-10-17 18:06] LABS: Source, Urine Catheter
[2019-10-17 18:10] LABS: Blood, Urine 2+ (Neg); Glucose Qualitative, Urine Neg (Neg); Ketones, Urine 3+ (Neg); Leukocyte Esterase, Urine 3+ (Neg); Nitrite, Urine Pos (Neg); Protein, Urine 1+ (Neg); Specific Gravity, Urine 1.015 (1.003-1.022); Urobilinogen, Urine 4+ (Normal)
[2019-10-17 18:15] LABS: Appearance, Urine Cloudy (Clear); Bilirubin, Urine 1+ (Neg); Color, Urine Amber (P-Yellow)
[2019-10-17 18:16] LABS: Bacteria Many /hpf; Squamous Epithelial Cells Few /hpf (Few); White Blood Cells, Urine TNTC /hpf (0-5)
[2019-10-17] MEDS ORDERED: NITR100CA PO (18:49)
[2019-10-17 21:52] LABS: Percent Saturation 7.9 % (15.0-50.0)
[2019-10-18 05:23] LABS: BASOPHILS PERCENT AUTO 0 % (0-2); EOSINOPHILS PERCENT AUTO 0 % (0-6); Hematocrit 21.4 % (33.0-51.0); IMMATURE GRAN ABSOLUTE AUTO 0.02 K/mm3 (0.00-0.10); IMMATURE GRAN PERCENT AUTO 1 % (0-1); LYMPHOCYTES ABSOLUTE AUTO 0.58 K/mm3 (0.84-5.20); LYMPHOCYTES PERCENT AUTO 30 % (21-46); MONOCYTES ABSOLUTE AUTO 0.51 K/mm3 (0.16-1.47); MONOCYTES PERCENT AUTO 26 % (4-13); Mean Corpuscular HGB 30.7 pg (26.0-34.0); Mean Corpuscular HGB Conc 32.7 g/dL (31.5-36.5); Mean Corpuscular Volume 94 fL (80-100); Mean Platelet Volume 11.5 fL (9.1-12.4); NEUTROPHILS ABSOLUTE AUTO 0.83 K/mm3 (1.96-9.15); NEUTROPHILS PERCENT AUTO 43 % (41-73); Platelet Count 74 K/mm3 (150-400); RDW Coefficient Variation 21.1 % (11.7-14.2); RDW Standard Deviation 57.3 fL (35.1-46.3); Red Blood Cell Count 2.28 M/mm3 (3.80-5.20); White Blood Cell Count 1.94 K/mm3 (4.00-11.30)
[2019-10-18 05:48] LABS: Anion Gap 5 mmol/L (6-16); Blood Urea Nitrogen 12 mg/dL (8-24); Bun/Creatinine Ratio 19.3 (12.0-20.0); CO2, Blood 29 mmol/L (21-32); Calcium, Blood 7.7 mg/dL (8.5-10.1); Chloride, Blood 97 mmol/L (98-108); Creatinine, Blood 0.62 mg/dL (0.40-1.00); Glomerular Filtration Rate >60 (60-); Glucose, Blood 104 mg/dL (70-99); Potassium, Blood 3.8 mmol/L (3.5-5.5); Sodium, Blood 131 mmol/L (136-145)
[2019-10-18 10:03] LABS: Hemoglobin 7.1 g/dL (11.5-16.0); Mean Corpuscular HGB 30.5 pg (26.0-34.0); Mean Corpuscular HGB Conc 32.3 g/dL (31.5-36.5); Mean Corpuscular Volume 94 fL (80-100); Mean Platelet Volume 11.1 fL (9.1-12.4); Platelet Count 80 K/mm3 (150-400); RDW Coefficient Variation 21.2 % (11.7-14.2); RDW Standard Deviation 56.9 fL (35.1-46.3); Red Blood Cell Count 2.33 M/mm3 (3.80-5.20); White Blood Cell Count 1.79 K/mm3 (4.00-11.30)
[2019-10-18 17:02] LABS: Source, Urine Catheter
[2019-10-18 17:19] LABS: Appearance, Urine Hazy (Clear); Bilirubin, Urine Neg (Neg); Blood, Urine 1+ (Neg); Color, Urine Yellow (P-Yellow); Glucose Qualitative, Urine Neg (Neg); Ketones, Urine 1+ (Neg); Leukocyte Esterase, Urine 2+ (Neg); Nitrite, Urine Neg (Neg); Protein, Urine Neg (Neg); Urobilinogen, Urine 3+ (Normal); pH, Urine 6.5 (5.0-8.0)
[2019-10-18 17:40] LABS: White Blood Cells, Urine 25-50 /hpf (0-5)
[2019-10-18 17:41] LABS: Bacteria Few /hpf; Red Blood Cells, Urine 0-2 /hpf (0-2); Squamous Epithelial Cells Rare /hpf (Few)
[2019-10-18 21:18] LABS: Vancomycin, Trough 9.9 ug/mL (5.0-10.0)
[2019-10-19 05:33] LABS: BASOPHILS ABSOLUTE AUTO 0.01 K/mm3 (0.00-0.23); BASOPHILS PERCENT AUTO 1 % (0-2); EOSINOPHILS ABSOLUTE AUTO 0.01 K/mm3 (0.00-0.68); EOSINOPHILS PERCENT AUTO 1 % (0-6); Hematocrit 27.4 % (33.0-51.0); Hemoglobin 9.2 g/dL (11.5-16.0); IMMATURE GRAN ABSOLUTE AUTO 0.02 K/mm3 (0.00-0.10); IMMATURE GRAN PERCENT AUTO 1 % (0-1); LYMPHOCYTES ABSOLUTE AUTO 0.62 K/mm3 (0.84-5.20); LYMPHOCYTES PERCENT AUTO 31 % (21-46); MONOCYTES ABSOLUTE AUTO 0.49 K/mm3 (0.16-1.47); MONOCYTES PERCENT AUTO 24 % (4-13); Mean Corpuscular HGB 30.3 pg (26.0-34.0); Mean Corpuscular HGB Conc 33.6 g/dL (31.5-36.5); Mean Corpuscular Volume 90 fL (80-100); Mean Platelet Volume 10.5 fL (9.1-12.4); NEUTROPHILS ABSOLUTE AUTO 0.87 K/mm3 (1.96-9.15); NEUTROPHILS PERCENT AUTO 43 % (41-73); Platelet Count 121 K/mm3 (150-400); RDW Coefficient Variation 19.5 % (11.7-14.2); RDW Standard Deviation 52.3 fL (35.1-46.3); Red Blood Cell Count 3.04 M/mm3 (3.80-5.20); White Blood Cell Count 2.02 K/mm3 (4.00-11.30)
[2019-10-19 21:34] LABS: Vancomycin, Trough 12.6 ug/mL (5.0-10.0)
[2019-10-20 05:10] LABS: BASOPHILS PERCENT AUTO 0 % (0-2); EOSINOPHILS PERCENT AUTO 0 % (0-6); Hematocrit 29.1 % (33.0-51.0); Hemoglobin 9.7 g/dL (11.5-16.0); IMMATURE GRAN ABSOLUTE AUTO 0.03 K/mm3 (0.00-0.10); IMMATURE GRAN PERCENT AUTO 1 % (0-1); LYMPHOCYTES ABSOLUTE AUTO 0.48 K/mm3 (0.84-5.20); LYMPHOCYTES PERCENT AUTO 17 % (21-46); MONOCYTES ABSOLUTE AUTO 0.56 K/mm3 (0.16-1.47); MONOCYTES PERCENT AUTO 20 % (4-13); Mean Corpuscular HGB 30.2 pg (26.0-34.0); Mean Corpuscular HGB Conc 33.3 g/dL (31.5-36.5); Mean Corpuscular Volume 91 fL (80-100); Mean Platelet Volume 9.8 fL (9.1-12.4); NEUTROPHILS ABSOLUTE AUTO 1.74 K/mm3 (1.96-9.15); NEUTROPHILS PERCENT AUTO 62 % (41-73); Platelet Count 187 K/mm3 (150-400); RDW Coefficient Variation 19.8 % (11.7-14.2); RDW Standard Deviation 53.2 fL (35.1-46.3); Red Blood Cell Count 3.21 M/mm3 (3.80-5.20); White Blood Cell Count 2.81 K/mm3 (4.00-11.30)
[2019-10-20 06:17] LABS: Anion Gap 9 mmol/L (6-16); Blood Urea Nitrogen 13 mg/dL (8-24); Bun/Creatinine Ratio 21.8 (12.0-20.0); CO2, Blood 26 mmol/L (21-32); Calcium, Blood 7.9 mg/dL (8.5-10.1); Chloride, Blood 96 mmol/L (98-108); Glomerular Filtration Rate >60 (60-); Glucose, Blood 109 mg/dL (70-99); Potassium, Blood 3.6 mmol/L (3.5-5.5); Sodium, Blood 131 mmol/L (136-145)
[2019-10-21 05:15] LABS: BASOPHILS ABSOLUTE AUTO 0.01 K/mm3 (0.00-0.23); BASOPHILS PERCENT AUTO 0 % (0-2); EOSINOPHILS ABSOLUTE AUTO 0.02 K/mm3 (0.00-0.68); EOSINOPHILS PERCENT AUTO 1 % (0-6); Hematocrit 30.2 % (33.0-51.0); Hemoglobin 9.6 g/dL (11.5-16.0); IMMATURE GRAN ABSOLUTE AUTO 0.06 K/mm3 (0.00-0.10); IMMATURE GRAN PERCENT AUTO 3 % (0-1); LYMPHOCYTES PERCENT AUTO 25 % (21-46); MONOCYTES ABSOLUTE AUTO 0.65 K/mm3 (0.16-1.47); MONOCYTES PERCENT AUTO 27 % (4-13); Mean Corpuscular HGB 29.3 pg (26.0-34.0); Mean Corpuscular HGB Conc 31.8 g/dL (31.5-36.5); Mean Corpuscular Volume 92 fL (80-100); Mean Platelet Volume 9.5 fL (9.1-12.4); NEUTROPHILS ABSOLUTE AUTO 1.08 K/mm3 (1.96-9.15); NEUTROPHILS PERCENT AUTO 45 % (41-73); Platelet Count 236 K/mm3 (150-400); RDW Coefficient Variation 19.9 % (11.7-14.2); RDW Standard Deviation 57.1 fL (35.1-46.3); Red Blood Cell Count 3.28 M/mm3 (3.80-5.20); White Blood Cell Count 2.42 K/mm3 (4.00-11.30)
[2019-10-21 05:59] LABS: Anion Gap 6 mmol/L (6-16); Blood Urea Nitrogen 14 mg/dL (8-24); Bun/Creatinine Ratio 28.5 (12.0-20.0); CO2, Blood 29 mmol/L (21-32); Calcium, Blood 8.1 mg/dL (8.5-10.1); Chloride, Blood 98 mmol/L (98-108); Creatinine, Blood 0.49 mg/dL (0.40-1.00); Glomerular Filtration Rate >60 (60-); Glucose, Blood 112 mg/dL (70-99); Potassium, Blood 3.6 mmol/L (3.5-5.5); Sodium, Blood 133 mmol/L (136-145)
[2019-10-22 05:17] LABS: BASOPHILS ABSOLUTE AUTO 0.01 K/mm3 (0.00-0.23); BASOPHILS PERCENT AUTO 0 % (0-2); EOSINOPHILS ABSOLUTE AUTO 0.02 K/mm3 (0.00-0.68); EOSINOPHILS PERCENT AUTO 1 % (0-6); Hematocrit 28.4 % (33.0-51.0); Hemoglobin 9.2 g/dL (11.5-16.0); IMMATURE GRAN ABSOLUTE AUTO 0.05 K/mm3 (0.00-0.10); IMMATURE GRAN PERCENT AUTO 2 % (0-1); LYMPHOCYTES ABSOLUTE AUTO 0.69 K/mm3 (0.84-5.20); LYMPHOCYTES PERCENT AUTO 31 % (21-46); MONOCYTES ABSOLUTE AUTO 0.65 K/mm3 (0.16-1.47); MONOCYTES PERCENT AUTO 29 % (4-13); Mean Corpuscular HGB 30.2 pg (26.0-34.0); Mean Corpuscular HGB Conc 32.4 g/dL (31.5-36.5); Mean Corpuscular Volume 93 fL (80-100); Mean Platelet Volume 9.4 fL (9.1-12.4); NEUTROPHILS ABSOLUTE AUTO 0.84 K/mm3 (1.96-9.15); NEUTROPHILS PERCENT AUTO 37 % (41-73); Platelet Count 265 K/mm3 (150-400); RDW Coefficient Variation 19.9 % (11.7-14.2); Red Blood Cell Count 3.05 M/mm3 (3.80-5.20); White Blood Cell Count 2.26 K/mm3 (4.00-11.30)
[2019-10-22 05:38] LABS: Anion Gap 5 mmol/L (6-16); Blood Urea Nitrogen 10 mg/dL (8-24); Bun/Creatinine Ratio 20.7 (12.0-20.0); CO2, Blood 31 mmol/L (21-32); Calcium, Blood 8.1 mg/dL (8.5-10.1); Chloride, Blood 99 mmol/L (98-108); Creatinine, Blood 0.48 mg/dL (0.40-1.00); Glomerular Filtration Rate >60 (60-); Glucose, Blood 99 mg/dL (70-99); Potassium, Blood 3.7 mmol/L (3.5-5.5); Sodium, Blood 135 mmol/L (136-145)
== END 2019-11-03 01:10 | DRG 872 ==
LOC: ER 16:55 → MEDS 21:27
PROVIDERS: Emergency Medicine; Family Medicine; ADMIT Family Medicine
DX: A41.9 Sepsis, unspecified organism (principal); C91.10 Chronic lymphocytic leukemia of B-cell type not having achieved remission; D61.818 Other pancytopenia; E87.1 Hypo-osmolality and hyponatremia; N39.0 Urinary tract infection, site not specified; Z51.5 Encounter for palliative care; Z20.828 Contact with and (suspected) exposure to other viral communicable diseases; I10 Essential (primary) hypertension; I48.0 Paroxysmal atrial fibrillation; J44.9 Chronic obstructive pulmonary disease, unspecified; G47.30 Sleep apnea, unspecified; M16.0 Bilateral primary osteoarthritis of hip; Z98.84 Bariatric surgery status; D63.0 Anemia in neoplastic disease; Z99.81 Dependence on supplemental oxygen
CPT/HCPCS: 36415; 36430; 80048; 80053; 80202; 81001; 82607; 82728; 82746; 83540; 83550; 83605; 83690; 85025; 85027; 86850; 86900; 86901; 86923; 87040; 87077; 87086; 87186; 93005; 93010; 94760; 96365; 96375; 96376; 97110; 97162; 97166; 97530; 99285-25; A9270; A9270-GY; J0692; J0696; J1170; J1650; J1940; J2405; J2765; J3010; J3370; J7050; P9040; Q0163; U0002